=== PATIENT | male | born 1945 | race Caucasian/White ===

== ENCOUNTER → 2016-03-14 | Outpatient (CLI) | payer MEDICARE ==
[2016-03-14 13:52] LABS: Blood Urea Nitrogen 14 mg/dL (9-20); Non-African American GFR(MDRD) >60 (>60 ml/min/1.73 sqM)
--- NOTE | 2016-03-14 17:03 | CT ---
EXAMINATION TYPE: CT abdomen pelvis w con DATE OF EXAM: 03/14/2016 2:57 PM COMPARISON: NONE INDICATION: Epigastric abdominal pain DLP: 1534 mGycm, Automated exposure control for dose reduction was used. CONTRAST: 100 ml mL of Omnipaque 300. Study performed with Oral Contrast TECHNIQUE: Axial images were obtained from above the diaphragm to the pubic rami in the axial plane a t 5 mm thick sections. Reconstructed images are reviewed on the computer in the coronal plane. FINDINGS: Limited CT sections are obtained the lung bases. The lung bases are clear. Small hiatal hernia is e vident. CT ABDOMEN: Liver: Calcified granulomas in the superior right lobe liver. Spleen: Normal Pancreas: Normal Adrenal glands: The adrenal glands are normal. Gallbladder: Gallstones are present. Kidneys: No masses are evident. No hydronephrosis is present. No cysts are present. Delayed images were obtained through the kidneys, which remain unremarkable. Nonobstructing 0.5 cm left mid renal s tone is present. There is a 0.8 cm inferior pole left renal stone Aorta: Vascular calcification is within the aorta. Inferior vena cava: Normal. CT PELVIS: Loops of bowel within the abdomen and pelvis are normal. There are loops of bowel which are incom pletely distended or lack oral contrast limiting their evaluation. Appendix: Normal as visualized. Urinary bladder: Normal. Genitourinary structures: Prostate contains calcification. Prostate hypertrophy is present. Osseous structures: No suspicious lytic or sclerotic lesions. IMPRESSIONS: 1. Nonobstructing 0.5 cm mid left renal pelvis stone. Additional left renal stone is present at the inferior pole without obstruction. 2. Prostate hypertrophy with calcification. 3. Hiatal hernia
== END | disposition home or self-care (01) ==
LOC: RADCTMAIN 13:08
PROVIDERS: ATTEND Surgery
DX: N20.0 Calculus of kidney (principal); N40.1 Benign prostatic hyperplasia with lower urinary tract symptoms; K44.9 Diaphragmatic hernia without obstruction or gangrene
CPT/HCPCS: 82565; 84520; 74177; 36415; Q9967

== ENCOUNTER → 2016-03-22 | Outpatient (CLI) | payer MEDICARE ==
[2016-03-22 14:57] LABS: Blood Urea Nitrogen 16 mg/dL (9-20); Non-African American GFR(MDRD) >60 (>60 ml/min/1.73 sqM)
== END | disposition home or self-care (01) ==
LOC: LABWHC1 14:09
PROVIDERS: ATTEND Surgery
DX: R22.2 Localized swelling, mass and lump, trunk (principal)
CPT/HCPCS: 36415; 82565; 84520

== ENCOUNTER → 2016-03-23 | Outpatient (CLI) | payer MEDICARE ==
--- NOTE | 2016-03-23 09:57 | CT ---
EXAMINATION TYPE: CT chest w con DATE OF EXAM: 03/23/2016 7:55 AM COMPARISON: NONE no prior chest CT or x-rays at this location., CT abdomen pelvis 03/14/2016 reviewed. HISTORY: Pt here for Chest mass CT DLP: 372.7 mGycm, Automated exposure control for dose reduction was used. CONTRAST: Performed injected with 100 mL of Omnipaque 300. TECHNIQUE: Axial images were obtained at 5 mm thick sections. Reconstructed images are reviewed on [employer] computer in the coronal plane. FINDINGS: Portion of the thyroid visualized is normal. No suspicious lung nodules or focal infiltrates are present. No enlarged mediastinal or hilar adenopathy is evident. Couple of small lymph nodes are within the m ediastinum. The ascending aorta diameter at the level of the main pulmonary artery is 3.0 cm. The ma in pulmonary artery diameter at the bifurcation is 2.6 cm. There is thickening of the distal esophagus. This extends from level of the luh to the gastroesoph ageal junction. A portion of this may be hiatal hernia right esophageal thickening however should be considered which raises the possibility of neoplasm. This area is more extensive than what was in the edaqr-ew-bisp previously. Limited CT sections are obtained through the upper abdomen. Abdomen is essentially unremarkable. IMPRESSIONS: 1. A long segment of thickening of the distal esophagus. A portion of this may be hiatal hernia. Goldberg anahy, given the extent, esophageal neoplasm should be considered. Additional workup is recommended.
== END | disposition home or self-care (01) ==
LOC: RADCTMAIN 07:22
PROVIDERS: ATTEND Surgery
DX: K22.8 Other specified diseases of esophagus (principal)
CPT/HCPCS: 71260; Q9967

== ENCOUNTER → 2016-03-25 | Outpatient (CLI) | payer MEDICARE ==
--- NOTE | 2016-03-27 20:48 | PE ---
EXAMINATION TYPE: PET CT fusion skull to thigh DATE OF EXAM: 03/25/2016 1:01 PM CLINICAL HISTORY: 70-year-old male with stomach cancer, initial staging TECHNIQUE: Following the intravenous administration of 14.8 mCi of F-18 FDG, whole body images are performed from the skull base to the midthigh. Images are reviewed on the computer in the coronal, a xial, and sagittal planes. Reconstructed rotating images are created on independent workstation and reviewed on the computer. A localization and attenuation correction CT is performed in conjunction with the PET scan. Glucose level: 94 mg/dL COMPARISON: Correlation CT 03/23/2016 and 03/14/2016 FINDINGS: PET: There is borderline moderate FDG uptake at the right AC joint likely on the basis of underlying osteo arthrosis. Maximal SUV 3.1. There are mediastinal lymph nodes, largest in the left paraesophageal region measuring up to 2.0 cm s hort axis. These show suspicious hypermetabolism, maximal SUV 10.3. Smaller mediastinal lymph nodes such as in the left tracheobronchial angle measure up to 9 mm and als o show increased FDG uptake, maximal SUV 4.7. Beginning from the level of the mid thoracic esophagus extending down to the GE junction, there is mo derate to severe irregular circumferential esophageal wall thickening that shows intense hypermetabol ism, maximal SUV 14.1. A 3 mm pulmonary nodule in the right middle lobe, axial image 112 is too small for accurate PET les cterization. This can be reassessed at follow-up. A mildly enlarged 1.1 cm gastrohepatic ligament lymph node in the upper abdomen shows moderate increa sed FDG uptake, maximal SUV 4.2. Additional retroperitoneal lymphadenopathy is noted measuring up to 1.8 cm aortocaval, 1.1 cm left re trocrural, and 2.2 cm left para-aortic all of which shows suspicious increased hypermetabolism. Maxim al SUV 12.9. Otherwise, there is physiologic FDG uptake within the abdomen and pelvis. ATTENUATION CORRECTION CT: Polyp or mucosal retention cyst along the anterior floor of the left maxillary sinus. No cervical lym phadenopathy seen. Heart is normal size without pericardial effusion. Coronary vessel calcifications are present and are a marker for coronary artery disease. Some calcified mediastinal lymph nodes are nonenlarged and sug gest prior granulomatous disease. Mild dependent atelectasis posteriorly in the lower lungs. Calcifie d granuloma in the lingula and right middle lobe. No consolidation or pleural effusion. Mild to mode rate bilateral gynecomastia. Small layering calculi in the gallbladder without any abnormal gallbladder distention. 2 nonobstruct inez calculi within the left kidney, largest in the lower pole measuring 1 cm. Tiny fatty umbilical h ernia is noted. Normal appendix. Scattered left hemicolonic diverticulosis with moderate stool burde n and no pericolonic inflammatory change. Prostatomegaly of 4.9 cm with central prostatic calcifications. Bones: Mild degenerative changes of hips. A small sclerotic focus is redemonstrated in the proximal l eft femur, likely bone island. Degenerative bony ankylosis at the right SI joint and degenerative derrek nges in the mid to lower lumbar spine. No osseous destructive process. Degenerative changes at the ri ght AC joint. IMPRESSION: 1. Moderate to severe irregular wall thickening spanning from the mid thoracic esophagus down to the GE junction with corresponding suspicious hypermetabolism. 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 2. Nonenlarged and enlarged hypermetabolic mediastinal, left paraesophageal (2.0 cm), left retrocrura l, gastrohepatic ligament (1.1 cm), and retroperitoneal (2.2 cm) lymphadenopathy compatible with meta static disease. 3. A 3 mm right middle lobe pulmonary nodule is too small for adequate PET characterization and may r elate to prior granulomatous disease. This should be reassessed at follow-up. 4. Incidental findings in the abdomen as above including cholelithiasis, left hemicolonic diverticulo sis, left-sided nephrolithiasis, and prostatomegaly (4.9 cm wide). 5. Degenerative FDG uptake at the right AC joint.
== END ==
LOC: RADPETMAIN 10:30
PROVIDERS: ATTEND Surgery
DX: C16.9 Malignant neoplasm of stomach, unspecified (principal); R59.0 Localized enlarged lymph nodes; R91.1 Solitary pulmonary nodule; K80.20 Calculus of gallbladder without cholecystitis without obstruction; K57.30 Diverticulosis of large intestine without perforation or abscess without bleeding; N20.0 Calculus of kidney; N40.0 Benign prostatic hyperplasia without lower urinary tract symptoms
CPT/HCPCS: 78815; A9552

== ENCOUNTER → 2016-04-17 | Outpatient (CLI) | payer MEDICARE ==
--- NOTE | 2016-04-18 10:59 | ECHOF ---
Referral Reason:Esophageal Ca C15.15, Z01.818 pre Chemo MEASUREMENTS -------- HEIGHT: 180.3 cm WEIGHT: 88.5 kg BP: 123/60 RVIDd: 2.6 cm (< 3.3) IVSd: 1.0 cm (0.6 - 1.1) LVIDd: 3.3 cm (3.9 - 5.3) LVPWd: 1.0 cm (0.6 - 1.1) IVSs: 1.4 cm LVIDs: 2.3 cm LVPWs: 1.7 cm LA Diam: 3.1 cm (2.7 - 3.8) LAESV Index (A-L): 11.13 ml/m Ao Diam: 3.6 cm (2.0 - 3.7) AV Cusp: 2.4 cm (1.5 - 2.6) MV EXCURSION: 15.965 mm (> 18.000) MV EF SLOPE: 54 mm/s (70 - 150) EPSS: 1.0 cm MV E Maxwell: 0.70 m/s MV DecT: 249 ms MV A Maxwell: 0.60 m/s MV E/A Ratio: 1.17 RAP: 5.00 mmHg RVSP: 28.81 mmHg FINDINGS -------- Sinus rhythm. This was a technically good study. The left ventricular size is normal. Left ventricular wall thickness is normal. Overall left ventricular systolic function is normal with, an EF between 55 - 60 %. The right ventricle is normal in size. The left atrium is normal in size. Normal LA size by volume 22+/-6 ml/m2. The right atrium is normal in size. The aortic valve is trileaflet and appears structurally normal. Mild mitral annular calcification present. Mild tricuspid regurgitation present. Right ventricular systolic pressure is normal at < 35 mmHg. Pulmonic valve appears structurally normal. The aortic root size is normal. Normal inferior vena cava with normal inspiratory collapse consistent with estimated right atrial pressure of 5 mmHg. There is no pericardial effusion. CONCLUSIONS -------- 1. Sinus rhythm. 2. Mild mitral annular calcification present. 3. Mild tricuspid regurgitation present. 4. Right ventricular systolic pressure is normal at < 35 mmHg. 5. Pulmonic valve appears structurally normal. 6. The aortic root size is normal. 7. Normal inferior vena cava with normal inspiratory collapse consistent with estimated right atrial pressure of 5 mmHg. 8. There is no pericardial effusion. 9. This was a technically good study. 10. The left ventricular size is normal. 11. Left ventricular wall thickness is normal. 12. Overall left ventricular systolic function is normal with, an EF between 55 - 60 %. 13. The right ventricle is normal in size. 14. Normal LA size by volume 22+/-6 ml/m2. 15. The right atrium is normal in size. 16. The aortic valve is trileaflet and appears structurally normal. BALANCE WHEEL HAND FILER: Tequila Parra RDCS
== END | disposition home or self-care (01) ==
LOC: RADECHMAIN 13:57
PROVIDERS: ATTEND Internal Medicine Hematology & Oncology
DX: Z01.810 Encounter for preprocedural cardiovascular examination (principal); C15.9 Malignant neoplasm of esophagus, unspecified; I08.1 Rheumatic disorders of both mitral and tricuspid valves
CPT/HCPCS: 93306

== ENCOUNTER 2016-04-18 10:58 | Day surgery (SDC) | payer MEDICARE ==
[2016-04-11 14:07] VITALS: BMI 27.6
[~2016-04-18 10:58] MED LIST: DEXAMETHASONE SOD PHOSPHATE 10 MG/ML 1 ML VIAL IV ONE; HEPARIN SODIUM,PORCINE 5,000 UNIT/ML 1 ML VIAL SQ ONE; HYDROmorphone 1 MG/ML 1 ML SYRINGE IVP PRN; LACTATED RINGERS 1,000 ML IV SCH; MIDAZOLAM 2 MG/2 ML VIAL IV PRN; ONDANSETRON 4 MG/2 ML VIAL IVP ONE; SCOPOLAMINE 1.5MG/72HR PATCH TRANSDERM ONE; ceFAZolin 2 GM in SODIUM CHLORIDE 0.9% 100 ML IVPB ONE
[2016-04-18 11:28] VITALS: RESP 16; TEMP 97.9
[2016-04-18] MEDS ORDERED: LIDOCAINE 1% 20 ML VIAL (10MG/ML) FOR IV START INTRADERMA ONE (11:38)
[2016-04-18] MEDS ORDERED: PROPOFOL 10 MG/ML 20 ML VIAL IV ONE (12:08)
[2016-04-18] MEDS ORDERED: GLYCOPYRROLATE 0.2 MG/ML 2 ML VIAL ONE (12:08)
[2016-04-18] MEDS ORDERED: MIDAZOLAM 2 MG/2 ML VIAL ONE (12:08)
[2016-04-18] MEDS ORDERED: fentaNYL (PF) 50 MCG/ML 2 ML AMP ONE (12:08)
[2016-04-18] MEDS ORDERED: LIDOCAINE 1% INJ 10MG/ML (20 ML MDV) ONE (12:08)
[2016-04-18] MEDS ORDERED: KETAMINE 10 MG/ML 20 ML VIAL ONE (12:08)
[2016-04-18] MEDS ORDERED: HEPARIN SODIUM,PORCINE 100 UNIT/ML 5 ML VIAL IV ONE (12:26)
[2016-04-18] MEDS ORDERED: IOHEXOL 350 MG/ML 50ML BOTTLE MISCELLANE ONE ×2 (12:27)
[2016-04-18] MEDS ORDERED: LIDOCAINE 1% (PF) 10MG/ML VIAL SQ ONE ×2 (12:28)
--- NOTE | 2016-04-18 13:13 | P.OP ---
Date of Procedure: 04/18/16 Preoperative Diagnosis: Esophageal cancer with a planned chemotherapy Postoperative Diagnosis: Esophageal cancer with planned chemotherapy Procedure(s) Performed: The patient was brought to the operating room and placed in supine position with both arms tucked. A footboard was placed. Chlorhexidine was used to prep the neck followed by application of sterile drapes and an Ioban dressing . A timeout was performed to verify correct patient and correct procedure. Patient was confirmed to receive perioperative IV antibiotics and VTE prophylaxis. An ultrasound was performed of the right neck to identify the carotid artery and internal jugular vein. The internal jugular vein was compressible and patent . Photodocumentation was made. Local anesthetic was infiltrated to create a field block. Seldinger technique was used and the internal jugular vein was accessed under direct ultrasound guidance. There was good backflow of dark venous blood. The guidewire was inserted and fluoroscopic images obtained to confirm the tip in SVC. The needle was removed followed by insertion of a dilator peel-away sheath. Local anesthetic was infiltrated along the inferior aspect of the right clavicle. A 2.5 cm skin incision was made and dissection was carried up to the pectoralis major muscle. A pocket was created for the port. The peel-away was cracked and removed with the port in appropriate position as confirmed by fluoroscopy and dye. A Bob was used to tunnel from the expected port site all the way up to the small incision in the neck and the catheter was pulled down into the cavity and then, once cut to size and attached to the port. The connector was clipped shut into position after which fluoroscopy was done positioning. We did use radiopaque dye for this roughly 20 mL. Once that was done subcutaneous tissue in the right pocket area was closed with 2-0 Vicryl. Skin was closed with 4-0 Monocryl for the port site as well as the initial access site. Dermabond was applied slight pressure dressing in the neck as well as Telfa with Tegaderm for the right pectoral region. Total fluoroscopic time was 2 minutes and 41 seconds. Prior to leaving the operating room fluoroscopy showed the catheter tip in the appropriate site patient will get a chest x-ray in recovery. Anesthesia: GETA, regional Surgeon: Familia Jones Estimated Blood Loss (ml): 10 Pathology: none sent Condition: stable Disposition: PACU Indications for Procedure: Biopsy proven esophageal cancer Operative Findings: Patent right IJ Good blood flow on accessing the port Heplocked at the end Description of Procedure: The patient was brought to the operating room and placed in supine position with both arms tucked. A footboard was placed. Chlorhexidine was used to prep the neck followed by application of sterile drapes and an Ioban dressing . A timeout was performed to verify correct patient and correct procedure. Patient was confirmed to receive perioperative IV antibiotics and VTE prophylaxis. An ultrasound was performed of the right neck to identify the carotid artery and internal jugular vein. The internal jugular vein was compressible and patent . Photodocumentation was made. Local anesthetic was infiltrated to create a field block. Seldinger technique was used and the internal jugular vein was accessed under direct ultrasound guidance. There was good backflow of dark venous blood. The guidewire was inserted and fluoroscopic images obtained to confirm the tip in SVC. The needle was removed followed by insertion of a dilator peel-away sheath. Local anesthetic was infiltrated along the inferior aspect of the right clavicle. A 2.5 cm skin incision was made and dissection was carried up to the pectoralis major muscle. A pocket was created for the port. The peel-away was cracked and removed with the port in appropriate position as confirmed by fluoroscopy and dye. A Bob was used to tunnel from the expected port site all the way up to the small incision in the neck and the catheter was pulled down into the cavity and then, once cut to size and attached to the port. The connector was clipped shut into position after which fluoroscopy was done positioning. We did use radiopaque dye for this roughly 20 mL. Once that was done subcutaneous tissue in the right pocket area was closed with 2-0 Vicryl. Skin was closed with 4-0 Monocryl for the port site as well as the initial access site. Dermabond was applied slight pressure dressing in the neck as well as Telfa with Tegaderm for the right pectoral region. Total fluoroscopic time was 2 minutes and 41 seconds. Prior to leaving the operating room fluoroscopy showed the catheter tip in the appropriate site patient will get a chest x-ray in recovery.
--- NOTE | 2016-04-18 13:26 | FL ---
Fluoroscopy History: PORT A CATH INSERTION 2 MIN 41 SEC FL, 1 FILM SCANNED
--- NOTE | 2016-04-18 13:55 | XR ---
EXAMINATION TYPE: XR chest 1V confirm line [facility] DATE OF EXAM: 04/18/2016 1:50 PM HISTORY: Shortness of breath. COMPARISON: None. TECHNIQUE: Single view of the chest is submitted. FINDINGS: Mediport catheter with its tip overlying the SVC. No evidence for pneumothorax. Strandy basilar densi ties may reflect atelectasis. Cardiomediastinal silhouette is unremarkable. IMPRESSION: 1. Line placed as noted without pneumothorax.
[2016-04-18 14:21] VITALS: BP 102/67; PULSE 65
== END 2016-04-18 14:27 | disposition home or self-care (01) ==
LOC: OR 10:58
PROVIDERS: ATTEND Surgery
DX: C15.9 Malignant neoplasm of esophagus, unspecified (principal); I10 Essential (primary) hypertension; E78.00 Pure hypercholesterolemia, unspecified; E78.5 Hyperlipidemia, unspecified; K21.9 Gastro-esophageal reflux disease without esophagitis; E55.9 Vitamin D deficiency, unspecified; Z79.82 Long term (current) use of aspirin; Z79.899 Other long term (current) drug therapy; Z87.891 Personal history of nicotine dependence
CPT/HCPCS: 77001; 36561; C1788; J2250; J1644 ×2; J1100; J0690; J2405; J2001 ×2; J3010; J2704; Q9967; 99152; 99153

== ENCOUNTER → 2016-07-10 | Outpatient (CLI) | payer MEDICARE ==
--- NOTE | 2016-07-11 09:24 | ECHOF ---
Referral Reason:C15.5 [facility] Z01.818 [place] MEASUREMENTS -------- HEIGHT: 179.1 cm WEIGHT: 90.7 kg BP: 123/57 RVIDd: 2.6 cm (< 3.3) IVSd: 1.2 cm (0.6 - 1.1) LVIDd: 4.3 cm (3.9 - 5.3) LVPWd: 1.3 cm (0.6 - 1.1) IVSs: 1.6 cm LVIDs: 3.1 cm LVPWs: 1.5 cm LA Diam: 3.2 cm (2.7 - 3.8) LAESV Index (A-L): 27.16 ml/m Ao Diam: 3.5 cm (2.0 - 3.7) AV Cusp: 1.8 cm (1.5 - 2.6) MV EXCURSION: 15.271 mm (> 18.000) MV EF SLOPE: 67 mm/s (70 - 150) EPSS: 1.3 cm MV E Maxwell: 0.83 m/s MV DecT: 210 ms MV A Maxwell: 0.66 m/s MV E/A Ratio: 1.27 RAP: 5.00 mmHg RVSP: 21.00 mmHg FINDINGS -------- Sinus rhythm. This was a technically adequate study. The left ventricular size is normal. There is mild concentric left ventricular hypertrophy. Overall left ventricular systolic function is low-normal with, an EF between 50 - 55 %. The right ventricle is normal in size. Normal LA size by volume 22+/-6 ml/m2. The right atrium is normal in size. Aortic valve is trileaflet and is mildly thickened. The mitral valve leaflets are mildly thickened. Mild mitral annular calcification present. There is trace mitral regurgitation. Trace tricuspid regurgitation present. Right ventricular systolic pressure is normal at < 35 mmHg. The pulmonic valve is normal. IVC Not well visulized. The pericardium is normal. CONCLUSIONS -------- 1. Sinus rhythm. 2. The mitral valve leaflets are mildly thickened. 3. Mild mitral annular calcification present. 4. There is trace mitral regurgitation. 5. Trace tricuspid regurgitation present. 6. Right ventricular systolic pressure is normal at < 35 mmHg. 7. The pulmonic valve is normal. 8. IVC Not well visulized. 9. The pericardium is normal. 10. This was a technically adequate study. 11. The left ventricular size is normal. 12. There is mild concentric left ventricular hypertrophy. 13. Overall left ventricular systolic function is low-normal with, an EF between 50 - 55 %. 14. The right ventricle is normal in size. 15. Normal LA size by volume 22+/-6 ml/m2. 16. The right atrium is normal in size. 17. Aortic valve is trileaflet and is mildly thickened. SCHOOL COOK: Kishan Ureña RDCS
== END | disposition home or self-care (01) ==
LOC: RADECHMAIN 13:12
PROVIDERS: ATTEND Internal Medicine Hematology & Oncology
DX: Z01.818 Encounter for other preprocedural examination (principal); I08.1 Rheumatic disorders of both mitral and tricuspid valves; C15.9 Malignant neoplasm of esophagus, unspecified
CPT/HCPCS: 93306

== ENCOUNTER → 2016-07-15 | Outpatient (CLI) | payer MEDICARE ==
--- NOTE | 2016-07-17 17:59 | PE ---
EXAMINATION TYPE: PET CT fusion skull to thigh DATE OF EXAM: 07/15/2016 2:50 PM CLINICAL HISTORY: 70-year-old male initial staging esophageal cancer. Last chemotherapy on 07/04/2016. TECHNIQUE: Following the intravenous administration of 14.6 mCi of F-18 FDG, whole body images are performed from the skull base to the midthigh. Images are reviewed on the computer in the coronal, a xial, and sagittal planes. Reconstructed rotating images are created on independent workstation and reviewed on the computer. A localization and attenuation correction CT is performed in conjunction with the PET scan. Glucose level: 89 mg/dL CTDI- 5.01 mGy DLP- 505.16 mGy/cm COMPARISON: 03/25/2016 FINDINGS: PET: Physiologic FDG uptake within the neck. A tiny 3 mm pulmonary nodule within the right middle lobe, axial image 107, is unchanged and too smal l for adequate PET characterization. A tiny granuloma is suspected. Interval treatment response with residual mild circumferential thickening of the distal half of the e sophagus, significantly improved from prior. There has been complete metabolic response in this area area, maximal SUV previously, 14.1. 2 left paraesophageal lymph nodes remain. These measure 1.4 cm versus 1.6 cm, previously, and 1.3 cm versus 2.0 cm, previously. One of these shows residual borderline intense hypermetabolism, maximal ISAAC V 5.8 versus 10.3, previously. There is trace FDG uptake at both fredo which appears to correspond to calcified lymph nodes, likely i nflammatory uptake from prior granulomatous disease. Previously seen hypermetabolic gastrohepatic ligament, retrocrural, and retroperitoneal lymph nodes h ave resolved in the interval. Mildly enlarged 9 mm left paraaortic lymph node also decreased in size and now ametabolic. Variable right hemicolonic and sigmoid colon uptake is likely physiologic. There is focal increased uptake at the left greater trochanter suggesting gluteal insertional tendino belén. Additional degenerative uptake at the right AC joint redemonstrated. ATTENUATION CORRECTION CT: Right anterior chest wall injection port with catheter tip at the lower SVC. Stable polyp or mucosal retention cyst within the left maxillary sinus. Mastoid air cells well pneuma tized. No cervical lymphadenopathy seen. The heart is upper limits of normal in size without pericardial effusion. Coronary vessel calcificati ons are present and unremarkable for coronary artery disease. Aorta is normal caliber with convention al arch vessel branching anatomy. Redemonstrated calcified mediastinal and hilar lymph nodes suggest ing prior granulomatous disease. Calcified granuloma within the lingula. Band of atelectasis/scar at the left base and new atelectasis at the inferior lingula. Mild to moderate bilateral gynecomastia. A calcified pulmonary granulomas. Layering calculi in the gallbladder. Previously demonstrated 1.1 cm nonobstructive calculus lower sebastián e left kidney. No dilated small bowel, free fluid, or free air. Prominent fluid within mid and lower small bowel loops and liquid stool within the right hemicolon. Bladder is urine distended. Prostate gland is enlarged measuring 5.3 cm wide. No abnormal fluid colle ction in the pelvis or pelvic lymphadenopathy seen. Bones: Degenerative changes at the right SI joint, lower lumbar spine, and right AC joint. IMPRESSION: 1. Interval treatment response. There has been significant improvement in the previous abnormal thick ening of the lower esophagus with complete metabolic response at the esophageal neoplasm. 2. One of the left paraesophageal lymph nodes, while decreased in size, still remains enlarged (1.4 c m) and shows residual borderline intense FDG uptake (Max SUV 5.8 versus 14.1, previously). Residual d isease here is not excluded at this time. 3. Other mediastinal, paraesophageal, retrocrural, upper abdominal, and retroperitoneal lymph nodes s how complete metabolic response. 4. The 3 mm right middle lobe pulmonary nodule is unchanged and presumed to relate to granulomatous d isease. 5. Incidental findings (cholelithiasis, left-sided nephrolithiasis, and prostatomegaly).
== END | disposition home or self-care (01) ==
LOC: RADPETMAIN 08:15
PROVIDERS: ATTEND Internal Medicine Hematology & Oncology
DX: C15.9 Malignant neoplasm of esophagus, unspecified (principal); R91.1 Solitary pulmonary nodule; R59.0 Localized enlarged lymph nodes
CPT/HCPCS: 78815; A9552

== ENCOUNTER → 2016-10-23 | Outpatient (CLI) | payer MEDICARE ==
--- NOTE | 2016-10-24 11:57 | ECHOF ---
Referral Reason:C15.5 esophageal cancer Z01.818 pre chemo MEASUREMENTS -------- HEIGHT: 177.8 cm WEIGHT: 82.6 kg BP: 119/55 RVIDd: 2.8 cm (< 3.3) IVSd: 1.2 cm (0.6 - 1.1) LVIDd: 4.6 cm (3.9 - 5.3) LVPWd: 1.1 cm (0.6 - 1.1) EDV(Teich): 97 ml IVSs: 1.5 cm LVIDs: 3.4 cm LVPWs: 1.7 cm %IVS Thck: 34 % ESV(Teich): 48 ml EF(Teich): 51 % %FS: 26 % SV(Teich): 50 ml LA Diam: 3.1 cm (2.7 - 3.8) IVC: 2.1 cm LALs A4C: 6.0 cm LAAs A4C: 21.0 cm LAESV A-L A4C: 62 ml LAESV MOD A4C: 61 ml LALs A2C: 5.6 cm LAAs A2C: 16.7 cm LAESV A-L A2C: 42 ml LAESV MOD A2C: 40 ml LAESV(A-L): 53 ml LAESV Index (A-L): 26.60 ml/m Ao Diam: 3.4 cm (2.0 - 3.7) AV Cusp: 2.3 cm (1.5 - 2.6) MV EXCURSION: 15.184 mm (> 18.000) MV EF SLOPE: 163 mm/s (70 - 150) EPSS: 1.1 cm MV E Maxwell: 0.79 m/s MV DecT: 210 ms MV Dec [place]: 3.7 m/s MV A Maxwell: 0.63 m/s MV E/A Ratio: 1.25 MV PHT: 61 ms E/E': 7.40 E': 0.11 m/s AV Vmax: 1.40 m/s AV maxP.89 mmHg TR Vmax: 2.40 m/s TR maxP.98 mmHg RAP: 5.00 mmHg RVSP: 27.98 mmHg FINDINGS -------- Sinus rhythm. This was a technically good study. The left ventricular size is normal. There is borderline concentric left ventricular hypertrophy. Overall left ventricular systolic function is normal with, an EF between 55 - 60 %. The right ventricle is normal in size. Normal LA size by volume 22+/-6 ml/m2. The right atrium is normal in size. The aortic valve is trileaflet, and appears structurally normal. No aortic stenosis or regurgitation. Mild mitral annular calcification present. Mild tricuspid regurgitation present. Right ventricular systolic pressure is normal at < 35 mmHg. The pulmonic valve is normal. The aortic root size is normal. The inferior vena cava is mildly dilated. The pericardium is normal. CONCLUSIONS -------- 1. Sinus rhythm. 2. Mild mitral annular calcification present. 3. Mild tricuspid regurgitation present. 4. Right ventricular systolic pressure is normal at < 35 mmHg. 5. The pulmonic valve is normal. 6. The aortic root size is normal. 7. The inferior vena cava is mildly dilated. 8. The pericardium is normal. 9. This was a technically good study. 10. The left ventricular size is normal. 11. There is borderline concentric left ventricular hypertrophy. 12. Overall left ventricular systolic function is normal with, an EF between 55 - 60 %. 13. The right ventricle is normal in size. 14. Normal LA size by volume 22+/-6 ml/m2. 15. The right atrium is normal in size. 16. The aortic valve is trileaflet, and appears structurally normal. No aortic stenosis or regurgitation. DUST MIXER: Tequila Parra RDCS
== END | disposition home or self-care (01) ==
LOC: RADECHMAIN 13:16
PROVIDERS: ATTEND Internal Medicine Hematology & Oncology
DX: Z01.818 Encounter for other preprocedural examination (principal); C15.5 Malignant neoplasm of lower third of esophagus; I07.1 Rheumatic tricuspid insufficiency
CPT/HCPCS: 93306

== ENCOUNTER → 2016-10-28 | Outpatient (CLI) | payer MEDICARE ==
--- NOTE | 2016-10-28 10:32 | PE ---
EXAMINATION TYPE: PET CT fusion skull to thigh DATE OF EXAM: 10/28/2016 COMPARISON: Prior PET/CT July 15, 2016. HISTORY: Esophageal cancer diagnosed March 2016 progress study . Patient completed chemotherapy [place] 14. TECHNIQUE: Following the intravenous administration of 13.7 mCi of F-18 FDG, whole body images are p erformed from the skull base to the midthigh. Images are reviewed on the computer in the coronal, ax ial, and sagittal planes. Reconstructed rotating images are created on independent workstation and r eviewed on the computer. A localization and attenuation correction CT is performed in conjunction w ith the PET scan. SCAN: Subsequent Scan FINDINGS: SKULL BASE AND NECK: No suspicious new hypermetabolic uptake is identified in the neck on current st udy. CHEST, MEDIASTINUM, AND HILAR REGION: There is persistent moderate to severe wall thickening of the m id to distal esophagus from subcarinal level extending to just above diaphragmatic hiatus. On current exam there is new hypermetabolic uptake over roughly 5 cm segment posterior to left atrium with max SUV of 4.34 on current study. In addition there is new abnormal right paraesophageal adenopathy at th e subcarinal level on axial image 88, lymph node on the right measures 1.9 x 1.3 cm with max SUV of 8.16. There is 1 cm left paraesophageal lymph node with max SUV of 4.11 on axial image 87 noted. Stab le node on the left measures 1.6 x 1.1 cm on axial image 96 with hypermetabolic uptake, max SUV is 4. 34 slightly diminished from prior study. ABDOMEN AND PELVIS: Upper abdomen shows recurrent adenopathy, gastrohepatic lymph node measures 1.7 x 1.7 cm on axial image 132 with max SUV of 3.16. There is recurrent retroperitoneal adenopathy with l eft periaortic lymph node on axial image 146 having max SUV of 7.83 measuring 1.1 x 1.1 cm. There is additional new aortocaval lymph node on axial image 153 measuring 1.9 x 1.4 cm with max SUV of 11.38. Additional new enlarged hypermetabolic left periaortic lymph node measures 1.8 x 1.8 cm on axial lloyd ge 156 with max SUV of 8.01. OSSEOUS STRUCTURES: No suspicious new hypermetabolic uptake is seen in the osseous structures. Increa sed uptake at level of right acromioclavicular joint is redemonstrated favor postinflammatory. OTHER CT: There is stable 1.4 cm mucous retention cyst or polyp in the anterior inferior left maxilla ry sinus. There is stable right internal jugular Mediport catheter. Heart size is stable and upper limits of normal. There is redemonstration of coronary artery calcific ation in the LAD on axial image 88. There is redemonstration of calcified bilateral hilar or mediastinal lymph nodes on axial image 78, l ikely product of old granulomatous disease. Some tiny calcified parenchymal nodules bilaterally are r edemonstrated, for reference 3 mm lingular nodule on axial image 88 is noted. Elevated left hemidiaphragm is redemonstrated. Bilateral gynecomastia is again seen. Dependent density or small stones in gallbladder is redemonstrated on axial image 138. Small calcific ation posterior in right hepatic dome is redemonstrated. There is stable 1.1 cm calculus lower pole l evel left kidney. Central zone calcifications and mildly enlarged prostate gland is redemonstrated. Facet arthropathy in the lower lumbar spine. There is multilevel spurring in the thoracolumbar spine. IMPRESSION: Findings consistent with neoplastic progression with recurrent hypermetabolic uptake in t he esophagus and new or recurrent paraesophageal and abdominal adenopathy noted as detailed above.
== END ==
LOC: RADPETMAIN 08:01
PROVIDERS: ATTEND Internal Medicine Hematology & Oncology
DX: C15.5 Malignant neoplasm of lower third of esophagus (principal)
CPT/HCPCS: 78815; A9552

== ENCOUNTER 2017-01-06 18:35 | Emergency (ER) | payer MEDICARE ==
[2017-01-06 18:41] VITALS: BP 122/55; RESP 18
[2017-01-06] MEDS ORDERED: SODIUM CHLORIDE 0.9% 1,000 ML IV STA (18:51)
[2017-01-06] MEDS ORDERED: ACETAMINOPHEN TAB 500 MG TAB PO STA (18:51)
[2017-01-06] MEDS ORDERED: SODIUM CHLORIDE 0.9% 500 ML IV STA (18:51)
[2017-01-06] MEDS ORDERED: IBUPROFEN 600 MG TAB PO STA (18:51)
--- NOTE | 2017-01-06 18:55 | ED ---
General Adult HPI - General Chief complaint: Fever Stated complaint: Fever, Ca patient Time Seen by Provider: 01/06/17 18:46 Source: patient, RN notes reviewed, old records reviewed Mode of arrival: ambulatory Limitations: no limitations - History of Present Illness Initial comments: Is a 71-year-old male to the ER for evaluation today. This patient's presenting evaluation of fever. Patient does have history of esophageal cancer. Patient has not had any lab tests since he started chemotherapy. Patient unsure of what white blood cell count or other cell lines have been. Patient does see Dr. Gurrola and follows with oncology. He did call her office until told to come to emergency room evaluation of his fever tonight. Patient denies any significant complaints no runny nose no sore throat no rashes no difficulty with urination, no nausea or vomiting. No abdominal pain no shortness of breath or cough. - Related Data Home Medications Medication Instructions Recorded Confirmed Aspirin 81 mg PO DAILY 03/19/14 01/06/17 Atenolol [Tenormin] 50 mg PO DAILY 03/19/14 01/06/17 Multivitamin [Men's Multi-Vitamin] 1 tab PO DAILY 03/19/14 01/06/17 Simvastatin [Zocor] 40 mg PO HS 03/19/14 01/06/17 Cholecalciferol [Vitamin D3] 5,000 unit PO DAILY 04/11/16 01/06/17 Docusate [Colace] 200 mg PO HS 01/06/17 01/06/17 Gabapentin [Neurontin] 300 mg PO TID 01/06/17 01/06/17 Vitamin B Complex 1 cap PO DAILY 01/06/17 01/06/17 Allergies Allergy/AdvReac Type Severity Reaction Status Date / Time No Known Allergies Allergy Verified 01/06/17 18:53 Review of Systems ROS Statement: Those systems with pertinent positive or pertinent negative responses have been documented in the HPI. ROS Other: All systems not noted in ROS Statement are negative. Past Medical History Past Medical History: Cancer, Hyperlipidemia, Hypertension Additional Past Medical History / Comment(s): esophageal cancer, hx kidney stones History of Any Multi-Drug Resistant Organisms: None Reported Past Surgical History: Tonsillectomy Additional Past Surgical History / Comment(s): COLONOSCOPY, lithotripsy, Past Anesthesia/Blood Transfusion Reactions: No Reported Reaction Past Psychological History: No Psychological Hx Reported Smoking Status: Never smoker Past Alcohol Use History: None Reported Past Drug Use History: None Reported - Past Family History Mother Family Medical History: Cancer Additional Family Medical History / Comment(s): breast General Exam Limitations: no limitations General appearance: alert, in no apparent distress Head exam: Present: atraumatic, normocephalic, normal inspection Eye exam: Present: normal appearance, PERRL, EOMI. Absent: scleral icterus, conjunctival injection, periorbital swelling ENT exam: Present: normal exam, mucous membranes moist Neck exam: Present: normal inspection. Absent: tenderness, meningismus, lymphadenopathy Respiratory exam: Present: normal lung sounds bilaterally. Absent: respiratory distress, wheezes, rales, rhonchi, stridor Cardiovascular Exam: Present: regular rate, normal rhythm, normal heart sounds. Absent: systolic murmur, diastolic murmur, rubs, gallop, clicks GI/Abdominal exam: Present: soft, normal bowel sounds. Absent: distended, tenderness, guarding, rebound, rigid Extremities exam: Present: normal inspection, full ROM, normal capillary refill. Absent: tenderness, pedal edema, joint swelling, calf tenderness Back exam: Present: normal inspection Neurological exam: Present: alert, oriented X3, CN II-XII intact Psychiatric exam: Present: normal affect, normal mood Skin exam: Present: warm, dry, intact, normal color. Absent: rash Course Vital Signs 01/06/17 01/06/17 01/06/17 18:39 18:58 20:29 Temperature 101 F H 98.4 F Pulse Rate 85 78 Respiratory 18 18 18 Rate Blood Pressure 122/55 122/55 O2 Sat by Pulse 97 95 Oximetry - Reevaluation(s) Reevaluation #1: 01/06/17 20:51 The patient is in no acute distress, feeling better with IV hydration and fever control EKG Findings - EKG Comments: EKG Findings:: EKG shows normal sinus rhythm rate of 89, MI 164, QRS 98, QTc 413 Medical Decision Making - Medical Decision Making 71 male with fever of unknown origin. Patient's white count is within normal limits, no source of fever found here in the ER, patient at this point feels better patient will be discharged home - Lab Data Result diagrams: 01/06/17 18:50 01/06/17 18:50 Lab Results 1101/06/17 01/06/17 Range/Units 18:50 18:50 18:50 WBC 8.6 (3.8-10.6) k/uL RBC 3.75 L (4.30-5.90) m/uL Hgb 12.2 L (13.0-17.5) gm/dL Hct 37.1 L (39.0-53.0) % MCV 98.9 (80.0-100.0) fL MCH 32.4 (25.0-35.0) pg MCHC 32.8 (31.0-37.0) g/dL RDW 14.1 (11.5-15.5) % Plt Count 305 (150-450) k/uL Neutrophils % 71 % Lymphocytes % 18 % Monocytes % 8 % Eosinophils % 1 % Basophils % 1 % Neutrophils # 6.0 (1.3-7.7) k/uL Lymphocytes # 1.6 (1.0-4.8) k/uL Monocytes # 0.7 (0-1.0) k/uL Eosinophils # 0.1 (0-0.7) k/uL Basophils # 0.0 (0-0.2) k/uL PT (9.0-12.0) sec INR (<1.2) APTT (22.0-30.0) sec Sodium 131 L (137-145) mmol/L Potassium 4.5 (3.5-5.1) mmol/L Chloride 99 (98-107) mmol/L Carbon Dioxide 23 (22-30) mmol/L Anion Gap 9 mmol/L BUN 14 (9-20) mg/dL Creatinine 0.90 (0.66-1.25) mg/dL Est GFR (MDRD) Af Amer >60 (>60 ml/min/1.73 sqM) Est GFR (MDRD) Non-Af >60 (>60 ml/min/1.73 sqM) Glucose 203 H (74-99) mg/dL Plasma Lactic Acid Malachi (0.7-2.0) mmol/L Calcium 9.0 (8.4-10.2) mg/dL Phosphorus 3.7 (2.5-4.5) mg/dL Magnesium 1.8 (1.6-2.3) mg/dL Total Bilirubin 1.2 (0.2-1.3) mg/dL AST 38 (17-59) U/L ALT 47 (21-72) U/L Alkaline Phosphatase 75 (38-126) U/L Total Creatine Kinase 49 L (55-170) U/L CK-MB (CK-2) 0.4 (0.0-2.4) ng/mL CK-MB (CK-2) Rel Index 0.8 Troponin I <0.012 (0.000-0.034) ng/mL Total Protein 7.6 (6.3-8.2) g/dL Albumin 3.7 (3.5-5.0) g/dL Influenza Type A RNA (Not Detectd) Influenza Type B (PCR) (Not Detectd) 01/06/17 01/06/17 01/06/17 Range/Units 18:50 18:50 18:55 WBC (3.8-10.6) k/uL RBC (4.30-5.90) m/uL Hgb (13.0-17.5) gm/dL Hct (39.0-53.0) % MCV (80.0-100.0) fL MCH (25.0-35.0) pg MCHC (31.0-37.0) g/dL RDW (11.5-15.5) % Plt Count (150-450) k/uL Neutrophils % % Lymphocytes % % Monocytes % % Eosinophils % % Basophils % % Neutrophils # (1.3-7.7) k/uL Lymphocytes # (1.0-4.8) k/uL Monocytes # (0-1.0) k/uL Eosinophils # (0-0.7) k/uL Basophils # (0-0.2) k/uL PT 11.4 (9.0-12.0) sec INR 1.1 (<1.2) APTT 24.8 (22.0-30.0) sec Sodium (137-145) mmol/L Potassium (3.5-5.1) mmol/L Chloride (98-107) mmol/L Carbon Dioxide (22-30) mmol/L Anion Gap mmol/L BUN (9-20) mg/dL Creatinine (0.66-1.25) mg/dL Est GFR (MDRD) Af Amer (>60 ml/min/1.73 sqM) Est GFR (MDRD) Non-Af (>60 ml/min/1.73 sqM) Glucose (74-99) mg/dL Plasma Lactic Acid Malachi 1.1 (0.7-2.0) mmol/L Calcium (8.4-10.2) mg/dL Phosphorus (2.5-4.5) mg/dL Magnesium (1.6-2.3) mg/dL Total Bilirubin (0.2-1.3) mg/dL AST (17-59) U/L ALT (21-72) U/L Alkaline Phosphatase (38-126) U/L Total Creatine Kinase (55-170) U/L CK-MB (CK-2) (0.0-2.4) ng/mL CK-MB (CK-2) Rel Index Troponin I (0.000-0.034) ng/mL Total Protein (6.3-8.2) g/dL Albumin (3.5-5.0) g/dL Influenza Type A RNA Not Detected (Not Detectd) Influenza Type B (PCR) Not Detected (Not Detectd) - Radiology Data Radiology results: report reviewed (Chest x-rays negative for acute disease), image reviewed Disposition Clinical Impression: Fever Disposition: HOME SELF-CARE Condition: Good Instructions: Fever in Adults (ED) Referrals: Torsten Nuñez MD [Primary Care Provider] - 1-2 days
[2017-01-06 19:10] LABS: Basophils % (A) 1 %; CH 33.1; CHCM 33.6; Eosinophils # (A) 0.1 k/uL (0-0.7); Eosinophils % (A) 1 %; HCT 37.1 % (39.0-53.0); HDW 2.77; HGB 12.2 gm/dL (13.0-17.5); Luc # (Auto) 0.14; Luc % (Auto) 2; Lymphocytes # (A) 1.6 k/uL (1.0-4.8); Lymphocytes % (A) 18 %; MCH 32.4 pg (25.0-35.0); MCHC 32.8 g/dL (31.0-37.0); MCV 98.9 fL (80.0-100.0); Mean Platelet Volume 6.5; Monocytes # (A) 0.7 k/uL (0-1.0); Monocytes % (A) 8 %; Neutrophils % (A) 71 %; RBC 3.75 m/uL (4.30-5.90); RDW 14.1 % (11.5-15.5); WBC 8.6 k/uL (3.8-10.6); WBC (Perox) 8.79
[2017-01-06 19:18] LABS: ALT 47 U/L (21-72); AST 38 U/L (17-59); Alkaline Phosphatase 75 U/L (38-126); Anion Gap 9 mmol/L; Blood Urea Nitrogen 14 mg/dL (9-20); Carbon Dioxide 23 mmol/L (22-30); Chloride 99 mmol/L (98-107); Glucose 203 mg/dL (74-99); Magnesium 1.8 mg/dL (1.6-2.3); Non-African American GFR(MDRD) >60 (>60 ml/min/1.73 sqM); Phosphorus 3.7 mg/dL (2.5-4.5); Potassium 4.5 mmol/L (3.5-5.1); Sodium 131 mmol/L (137-145); Total Bilirubin 1.2 mg/dL (0.2-1.3); Total Protein 7.6 g/dL (6.3-8.2)
[2017-01-06 19:19] LABS: INR 1.1 (<1.2); Partial Thromboplastin Time 24.8 sec (22.0-30.0); Prothrombin Time 11.4 sec (9.0-12.0)
[2017-01-06 19:29] LABS: Creatine Kinase 49 U/L (55-170)
[2017-01-06 19:42] LABS: Creatine Kinase MB 0.4 ng/mL (0.0-2.4); Troponin I <0.012 ng/mL (0.000-0.034)
[2017-01-06 20:33] VITALS: PULSE 78; TEMP 98.4
--- NOTE | 2017-01-06 20:46 | XR ---
EXAMINATION TYPE: XR chest 2V DATE OF EXAM: 01/06/2017 COMPARISON: 04/18/2016 HISTORY: Fever TECHNIQUE: Frontal and lateral views of the chest are obtained. FINDINGS: There is no heart failure nor confluent pneumonic infiltrate. There is mild linear density at the right lung base. Right central venous catheter has tip in the superior vena cava. There are c hest leads. There is some linear density in the left lower lobe. IMPRESSION: Bilateral lower lobe patchy atelectasis that is similar to old exam. No heart failure.
== END 2017-01-06 20:59 | disposition home or self-care (01) ==
LOC: EC 18:35
DX: R50.9 Fever, unspecified (principal); E78.5 Hyperlipidemia, unspecified; I10 Essential (primary) hypertension; Z79.82 Long term (current) use of aspirin; Z79.899 Other long term (current) drug therapy; Z85.01 Personal history of malignant neoplasm of esophagus; Z92.21 Personal history of antineoplastic chemotherapy
CPT/HCPCS: 36415; 71020; 80053; 82550; 82553; 83605; 83735; 84100; 84484; 85025; 85610; 85730; 87040; 87502; 93005; 96360; 96361; 99284

== ENCOUNTER → 2017-01-06 | Outpatient (CLI) | payer MEDICARE | END | disposition home or self-care (01) | LOC: RADPETMAIN 11:47 | PROVIDERS: ATTEND Internal Medicine Hematology & Oncology | DX: Z53.9 Procedure and treatment not carried out, unspecified reason (principal) ==

== ENCOUNTER → 2017-01-13 | Outpatient (CLI) | payer MEDICARE ==
--- NOTE | 2017-01-15 07:58 | PE ---
EXAMINATION TYPE: PET CT fusion skull to thigh DATE OF EXAM: 01/13/2017 COMPARISON: PET/CT dated 10/28/2016, 07/15/2016, and 03/25/2016. CT abdomen pelvis dated 03/14/2016. HISTORY: Esophageal carcinoma diagnosed every 2016. Last chemotherapy treatment on 01/08/2017. No his tory of radiation. TECHNIQUE: Following the intravenous administration of 12.6 mCi of F-18 FDG, whole body images are p erformed from the skull base to the midthigh. Images are reviewed on the computer in the coronal, ax ial, and sagittal planes. Reconstructed rotating images are created on independent workstation and r eviewed on the computer. A localization and attenuation correction CT is performed in conjunction w ith the PET scan. SCAN: Fourth PET scan at this institution. Surveillance. FINDINGS: SKULL BASE AND NECK: No suspicious hypermetabolic uptake. CHEST, MEDIASTINUM, AND HILAR REGION: Background mediastinal uptake demonstrates a maximal SUV of 2.6 . Abnormal FDG avidity begins in the subcarinal circumferentially thickened esophagus extending over 8 cm on the sagittal image terminating just above the diaphragmatic hiatus with a maximal SUV of 10.2 ( previous exam maximal SUV of 4.34). Enlarged left paraesophageal lymph node on series 3 image 103 mariama sures 1.5 cm in short axis and demonstrates a maximum SUV of 3.7 (previously measuring 1 cm with max SUV of 4.11). Left paraesophageal lymph node superior to this on series 3 image 94 measures up to 2.1 cm in short axis and demonstrates a maximum SUV of 11.1 (previously measuring 1.9 x 1.3 cm with max SUV of 8.16). Superior to this a subcarinal lymph node on series 3 image 90 measures 1.9 cm in short axis and demonstrates an SUV of 3.1 (previously measuring 1.6 x 1.1 cm within SUV of 4.3). ABDOMEN AND PELVIS: Background unaffected hepatic parenchymal abdominal uptake measures a maximal SUV of 2.4 and maximal splenic uptake measures 2.1. Gastrohepatic lymph node that previously demonstrated a maximum SUV of 3.2 and measured 1.5 cm has in creased in size measuring 1.7 cm although maximum SUV is minimally decreased now measuring 2.3. This is seen on series 3 image 131. Inferior to this a periaortic lymph node has also slightly decreased i n avidity with a maximum SUV of 5.7 cm measuring 1.4 cm on series 3 image 139 and previously measurin g 1.1 cm. Conglomeration of aortocaval lymph nodes, left paracentrally on series 3 image 163 demonstr ate a maximal SUV of 10.2 measuring up to 2.8 cm in short axis and on the right measure up to 2.6 cm in short axis with a maximal SUV of 12.6. These have slightly increased in size from the prior exam a nd are similar to previous of the of 11.4 on the prior exam. Smaller left periaortic lymph node crani al to this on series 3 image 153 measures 2.2 cm in short axis and demonstrates a maximum SUV of 10.2 . Additionally there are numerous new hepatic masses with the largest in the right hepatic lobe in segm ent 8 demonstrating maximal SUV of 15.9. This is ill-defined on this noncontrast CT and measures appr oximately 3.0 x 2.7. Conglomeration of 2 masses at the hepatic dome demonstrates a maximal SUV uptake of 14.0 and measure up to 5.5 x 3.1 cm on series 3 image 109. There are at least 12 masses located i n both right and left hepatic lobes. Single calcification is seen within the posterior right hepatic lobe. OSSEOUS STRUCTURES: No suspicious hypermetabolic uptake. Again there is increased uptake within the r ight acromioclavicular joint that is not above mediastinal background and is again favored to be infl ammatory. OTHER CT: Scattered areas of subsegmental atelectasis are seen within the lungs. There is no evidence of pulmonary mass or pulmonary nodule. No pleural effusion or focal consolidation. Right-sided Medip ort again terminates in the cavoatrial junction. Bilateral polypoid mucosal thickening either represe nting mucosal polyps or retention cysts are seen within the maxillary sinuses. Retroareolar symmetric gynecomastia is again noted bilaterally. Coronary artery calcifications are moderate within the left anterior descending coronary artery. Stable calcified hilar and subcarinal granulomas. Subcentimeter benign calcified parenchymal nodes are again noted bilaterally. As stated above there are numerous new hypoattenuated hepatic lesions most compatible with metastasis with the largest conglomeration in the hepatic dome and the second largest lesion in segment 8. Gall bladder contains layering gallstones within the gallbladder body. The unenhanced adrenal glands splee n, pancreas, and right kidney are unremarkable. Again noted are multiple left-sided nonobstructing re nal calculi with the largest in the lower pole measuring 8 mm and 2 other within the mid pole measuri ng 7 mm and 3 mm. As described above there is adenopathy within the abdomen. Heterogenous prostate is redemonstrated with central zone calcifications. Small fat filled umbilical hernia is seen. Moderate degenerative changes of thoracolumbar and lumbosacral spine are similar to the prior. Degenerative c hanges of the right acromioclavicular joint and sacroiliac joints are also again noted. IMPRESSION: Progression of disease. Increase in maximal SUV within the target lesion (biopsy proven e sophageal neoplasm) from 4.3 on the prior exam to 10.2 on the current exam. Additionally numerous hyp ermetabolic hepatic masses are most compatible with metastasis. Lymphadenopathy within the chest and abdomen is variable in response, but overall stable.
== END | disposition home or self-care (01) ==
LOC: RADPETMAIN 12:30
PROVIDERS: ATTEND Internal Medicine Hematology & Oncology
DX: C15.5 Malignant neoplasm of lower third of esophagus (principal); R59.0 Localized enlarged lymph nodes
CPT/HCPCS: 78815; A9552

== ENCOUNTER 2017-03-03 00:11 | Emergency (ER) | payer MEDICARE ==
[2017-03-03] MEDS ORDERED: OXYMETAZOLINE 0.05% NASL SPRAY 1 SPRAY BOTTLE NASAL STA (00:23)
--- NOTE | 2017-03-03 00:36 | ED ---
ENT HPI - General Chief complaint: ENT Stated complaint: Nose Bleed Time Seen by Provider: 03/03/17 00:18 Source: patient, family, RN notes reviewed Mode of arrival: ambulatory Limitations: no limitations - History of Present Illness Initial comments: 71-year-old male presents emergency Department chief complaint of epistaxis. Patient states that he had a nosebleed on Sunday which bled on and off of the day but resolved. He developed another nosebleed on the right side this evening around 8 PM he states it started Sunday after but started again. Patient states he did have some blood in his throat and he coughed up. He states he was laying on his back snoring very loudly when symptoms started per . Patient does take half a baby aspirin and states he does not take any other blood thinners. Patient denies headache, dizziness, chest pain, shortness breath. Patient states the bleeding has essentially stopped at this time. - Related Data Home Medications Medication Instructions Recorded Confirmed Aspirin 81 mg PO DAILY 03/19/14 02/02/17 Atenolol [Tenormin] 50 mg PO DAILY 03/19/14 02/02/17 Multivitamin [Men's Multi-Vitamin] 1 tab PO DAILY 03/19/14 02/02/17 Simvastatin [Zocor] 40 mg PO HS 03/19/14 02/02/17 Cholecalciferol [Vitamin D3] 5,000 unit PO DAILY 04/11/16 02/02/17 Docusate [Colace] 200 mg PO HS 01/06/17 02/02/17 Gabapentin [Neurontin] 300 mg PO TID 01/06/17 02/02/17 Vitamin B Complex 1 cap PO DAILY 01/06/17 02/02/17 traMADol HCL [Ultram] 50 mg PO Q6HR PRN 02/02/17 02/02/17 Previous Rx's Medication Instructions Recorded Tamsulosin [Flomax] 0.4 mg PO DAILY #7 cap 02/02/17 Allergies Allergy/AdvReac Type Severity Reaction Status Date / Time No Known Allergies Allergy Verified 03/03/17 00:17 Review of Systems ROS Statement: Those systems with pertinent positive or pertinent negative responses have been documented in the HPI. ROS Other: All systems not noted in ROS Statement are negative. Past Medical History Past Medical History: Cancer, Hyperlipidemia, Hypertension Additional Past Medical History / Comment(s): esophageal cancer, hx kidney stones History of Any Multi-Drug Resistant Organisms: None Reported Past Surgical History: Tonsillectomy Additional Past Surgical History / Comment(s): COLONOSCOPY, lithotripsy, Past Anesthesia/Blood Transfusion Reactions: No Reported Reaction Past Psychological History: No Psychological Hx Reported Smoking Status: Never smoker Past Alcohol Use History: None Reported Past Drug Use History: None Reported - Past Family History Mother Family Medical History: Cancer Additional Family Medical History / Comment(s): breast General Exam Limitations: no limitations General appearance: alert, in no apparent distress Head exam: Present: atraumatic, normocephalic, normal inspection Eye exam: Present: normal appearance, PERRL, EOMI. Absent: scleral icterus, conjunctival injection, periorbital swelling ENT exam: Present: normal oropharynx, mucous membranes moist, TM's normal bilaterally, normal external ear exam, other (Old blood noted in the right nostril no active bleeding). Absent: normal exam Neck exam: Present: normal inspection, full ROM. Absent: tenderness, meningismus, lymphadenopathy Respiratory exam: Present: normal lung sounds bilaterally. Absent: respiratory distress, wheezes, rales, rhonchi, stridor Cardiovascular Exam: Present: regular rate, normal rhythm, normal heart sounds. Absent: systolic murmur, diastolic murmur, rubs, gallop, clicks Course Vital Signs 03/03/17 03/03/17 00:13 01:16 Temperature 97 F L Pulse Rate 96 Respiratory 24 Rate Blood Pressure 136/68 121/57 O2 Sat by Pulse 98 Oximetry - Reevaluation(s) Reevaluation #1: 03/03/17 00:36 Afrin nasal spray was given in both nostrils, nose clamp applied patient be rechecked in 10 minutes blood pressure to be rechecked. Medical Decision Making - Medical Decision Making 8-year-old male presented for an nosebleed. Patient's symptoms have resolved after nasal clip and Afrin. Patient we discharged with nasal clip and Afrin use for the next 2-3 days. He'll follow up with on-call ENT Dr. Rogel return parameters were discussed. Disposition Clinical Impression: Epistaxis Disposition: HOME SELF-CARE Condition: Stable Instructions: Nosebleed (ED) Additional Instructions: Please return to the Emergency Department if symptoms worsen or any other concerns. Referrals: Torsten Nuñez MD [Primary Care Provider] - 1-2 days Flavio Rogel MD [STAFF PHYSICIAN] - 1-2 days Time of Disposition: 01:25
[2017-03-03 01:34] VITALS: BP 125/57; PULSE 69; RESP 17; TEMP 98.1
== END 2017-03-03 01:31 | disposition home or self-care (01) ==
LOC: EC 00:11
DX: R04.0 Epistaxis (principal); E78.5 Hyperlipidemia, unspecified; I10 Essential (primary) hypertension; Z85.01 Personal history of malignant neoplasm of esophagus; Z79.82 Long term (current) use of aspirin; Z79.899 Other long term (current) drug therapy
CPT/HCPCS: 99283

== ENCOUNTER → 2017-04-21 | Outpatient (CLI) | payer MEDICARE ==
--- NOTE | 2017-04-23 13:05 | PE ---
Nuclear medicine PET/CT HISTORY: Esophageal carcinoma Patient received 13.4 mCi F-18 FDG intravenously in delayed scanning was performed from the skull bas e to the mid thighs. Correlation to prior nuclear medicine PET/CT 01/13/2017 Neck and chest: Inflammatory changes present within the maxillary sinuses and sphenoid, there is like ly mucus retention cyst on the left and possibly right maxillary sinus. No evident cervical adenopath y. Salivary glands show symmetric appearance. No suspicious hypermetabolic uptake. There is a Port-A- Cath in the right pectoral region, courses via the internal jugular approach to the superior vena cav a. No mediastinal, axillary, or hilar adenopathy. Coronary artery calcifications noted incidentally. Distal esophagus shows abnormal thickening, SUV 5.6, local luis activity suspected, some left hilar adenopathy also present, SUV is only 0.1.. Subpleural nodular density in the right upper lobe on axial image 66 anteriorly may be postinflammato ry. There is no pleural or pericardial effusion. Some additional scattered probable postinflammatory changes present within the lungs. Subcarinal node has decreased in size, no hypermetabolic uptake. ABDOMEN: There are multiple hypodense foci scattered within the liver which are not as well seen on n oncontrast exam. Corresponding hypermetabolic uptake is present. There are at least 10 lesions presen t. Largest lesions are present within the right lobe, SUV values approximately 6-7, smaller lesions s how SUVs of approximately 4. Small nodes present immediately anterior to the aorta at the level of th e hiatus shows an SUV of 3.7. There is a large left retroperitoneal soft tissue mass measuring 5.1 x 3.7 cm with an SUV of approximately 19.5 which is increased in size. The right-sided retroperitoneal node between the aorta and inferior vena cava now measures approximately 3.3 cm in greatest dimension and is decreased in size compared to prior, no associated hypermetabolic uptake. Gallstones are noted incidentally. Prostate is enlarged and shows associated calcifications. Nonobstr uctive left renal calculi noted at the lower pole as on prior. Osseous structures are not significantly changed. IMPRESSION: Large retroperitoneal soft tissue mass has increased in size and shows persistent abnorma l hypermetabolic uptake. Liver lesions have decreased in activity as compared to prior exam as has t he right-sided retroperitoneal node and distal esophagus hypermetabolic uptake which has improved com pared to previous exam.
== END | disposition home or self-care (01) ==
LOC: RADPETMAIN 08:26
PROVIDERS: ATTEND Internal Medicine Hematology & Oncology
DX: C15.5 Malignant neoplasm of lower third of esophagus (principal); K76.9 Liver disease, unspecified; R19.09 Other intra-abdominal and pelvic swelling, mass and lump
CPT/HCPCS: 78815; A9552

== ENCOUNTER 2017-07-10 08:59 | Inpatient (IN) | payer MEDICARE ==
[2017-07-10] MEDS ORDERED: SODIUM CHLORIDE 0.9% 1,000 ML IV STA (09:52)
[2017-07-10] MEDS ORDERED: MORPHINE SULFATE 4 MG/ML SYRINGE IVP STA ×2 (09:53→12:25)
[2017-07-10] MEDS ORDERED: ONDANSETRON 4 MG/2 ML VIAL IVP STA (09:53)
--- NOTE | 2017-07-10 10:06 | ED ---
General Adult HPI - General Chief complaint: Abdominal Pain Stated complaint: NVD-Ca Pt Time Seen by Provider: 07/10/17 09:43 Source: patient, RN notes reviewed Mode of arrival: wheelchair Limitations: no limitations - History of Present Illness Initial comments: Patient 71-year-old male significant past medical history for esophageal cancer , last dose chemotherapy 2 weeks ago presenting to the emergency room today with a chief complaint of left lower quadrant pain and episode of nausea vomiting. Patient states the pain has been getting worse last 3 days. Does admit to an episode of nausea vomiting last night. Patient states was due for next dose of chemotherapy today they called the office was advised complete emergency room. Patient admits some pain that is constant left lower quadrant. Rates an 8/10. Denies any other complaints or symptoms. Patient denies any recent shortness of breath, chest pain, numbness or tingling, dysuria or hematuria, constipation, headaches or visual changes, or any other complaints. - Related Data Home Medications Medication Instructions Recorded Confirmed Aspirin 81 mg PO DAILY 03/19/14 07/10/17 Atenolol [Tenormin] 50 mg PO DAILY 03/19/14 07/10/17 Multivitamin [Men's Multi-Vitamin] 1 tab PO DAILY 03/19/14 07/10/17 Cholecalciferol [Vitamin D3] 5,000 unit PO DAILY 04/11/16 07/10/17 Docusate [Colace] 200 mg PO HS 01/06/17 07/10/17 Gabapentin [Neurontin] 300 mg PO TID 01/06/17 07/10/17 Vitamin B Complex 1 cap PO DAILY 01/06/17 07/10/17 traMADol HCL [Ultram] 50 mg PO Q8H PRN 02/02/17 07/10/17 Bisacodyl [Dulcolax] 5 mg PO DAILY 07/10/17 07/10/17 Clotrimazole Maribell [Mycelex 10 mg MUCOUS MEM QID 07/10/17 07/10/17 Maribell] Simvastatin [Zocor] 20 mg PO HS 07/10/17 07/10/17 Previous Rx's Medication Instructions Recorded Tamsulosin [Flomax] 0.4 mg PO DAILY #7 cap 02/02/17 Allergies Allergy/AdvReac Type Severity Reaction Status Date / Time No Known Allergies Allergy Verified 07/10/17 09:46 Review of Systems ROS Statement: Those systems with pertinent positive or pertinent negative responses have been documented in the HPI. ROS Other: All systems not noted in ROS Statement are negative. Past Medical History Past Medical History: Cancer, Hyperlipidemia, Hypertension Additional Past Medical History / Comment(s): esophageal cancer, hx kidney stones History of Any Multi-Drug Resistant Organisms: None Reported Past Surgical History: Tonsillectomy Additional Past Surgical History / Comment(s): COLONOSCOPY, lithotripsy, Past Anesthesia/Blood Transfusion Reactions: No Reported Reaction Past Psychological History: No Psychological Hx Reported Smoking Status: Never smoker Past Alcohol Use History: None Reported Past Drug Use History: None Reported - Past Family History Mother Family Medical History: Cancer Additional Family Medical History / Comment(s): breast General Exam - General Exam Comments Initial Comments: General: The patient is awake and alert, in no distress, and does not appear acutely ill. Eye: Pupils are equal, round and reactive to light, extra-ocular movements are intact. No nystagmus. There is normal conjunctiva bilaterally. No signs of icterus. Ears, nose, mouth and throat: There are moist mucous membranes and no oral lesions. Neck: The neck is supple, there is no tenderness or JVD. Cardiovascular: There is a regular rate and rhythm. No murmur, rub or gallop is appreciated. Respiratory: Lungs are clear to auscultation, respirations are non-labored, breath sounds are equal. No wheezes, stridor, rales, or rhonchi. Gastrointestinal: Abdomen soft on palpation. Patient does have tenderness left lower quadrant. No rebound tenderness. No guarding. No CVA tenderness. Musculoskeletal: Normal ROM, no tenderness. Strength 5/5. Sensation intact. Pulses equal bilaterally 2+. Neurological: A&O x 3. CN II-XII intact, There are no obvious motor or sensory deficits. Coordination appears grossly intact. Speech is normal. Skin: Skin is warm and dry and no rashes or lesions are noted. Psychiatric: Cooperative, appropriate mood & affect, normal judgment. Limitations: no limitations Course Vital Signs 07/10/17 07/10/17 09:16 11:53 Temperature 97.3 F L Pulse Rate 90 69 Respiratory 18 18 Rate Blood Pressure 136/81 142/65 O2 Sat by Pulse 97 95 Oximetry Medical Decision Making - Medical Decision Making Patient's labs been reviewed. Sodium 126. Remaining labs reviewed. Urinalysis showing no sign of infection at this time. Urine culture is pending. Patient's CT the abdomen and pelvis reviewed and shows 1. Findings highly suggestive of the right side of pyelonephritis. 2. Known lower esophageal carcinoma. There has been interval disease progression with enlargement of the lower left paraesophageal lymph node (4.0 cm versus 1.6 cm there were 2017) and too numerous to count Pulmonary nodules measuring up to 2.8 cm. Gastrohepatic ligament lymph nodes, retroperitoneal lymph nodes, and hepatic metastatic since are unchanged in appearance. 3. Eyedrop gallbladder with cholelithiasis. 4. Hypodense areas aren't spleen could represent splenic lesions. However, given peripheral wedge- shaped shaped configuration too many of these areas, multiple splenic infarcts should also be considered. As read by Dr. Luna. Results were discussed with attending physician Dr. Michael along with the patient. Patient will be started on antibiotics Rocephin. Will be admitted to the hospital for further evaluation with consults to oncology - Lab Data Result diagrams: 07/10/17 10:00 07/10/17 10:00 Lab Results 07/10/17 07/10/17 07/10/17 Range/Units 10:00 10:00 10:00 WBC 8.2 (3.8-10.6) k/uL RBC 3.64 L (4.30-5.90) m/uL Hgb 10.3 L (13.0-17.5) gm/dL Hct 32.1 L (39.0-53.0) % MCV 88.0 (80.0-100.0) fL MCH 28.3 (25.0-35.0) pg MCHC 32.2 (31.0-37.0) g/dL RDW 17.8 H (11.5-15.5) % Plt Count 216 (150-450) k/uL Neutrophils % 85 % Lymphocytes % 5 % Monocytes % 8 % Eosinophils % 0 % Basophils % 0 % Neutrophils # 7.0 (1.3-7.7) k/uL Lymphocytes # 0.4 L (1.0-4.8) k/uL Monocytes # 0.6 (0-1.0) k/uL Eosinophils # 0.0 (0-0.7) k/uL Basophils # 0.0 (0-0.2) k/uL Hypochromasia Slight Poikilocytosis Slight Anisocytosis Slight Sodium 126 L (137-145) mmol/L Potassium 4.8 (3.5-5.1) mmol/L Chloride 91 L (98-107) mmol/L Carbon Dioxide 26 (22-30) mmol/L Anion Gap 9 mmol/L BUN 13 (9-20) mg/dL Creatinine 0.64 L (0.66-1.25) mg/dL Est GFR (CKD-EPI)AfAm >90 (>60 ml/min/1.73 sqM) Est GFR (CKD-EPI)NonAf >90 (>60 ml/min/1.73 sqM) Glucose 155 H (74-99) mg/dL Plasma Lactic Acid Malachi 1.5 (0.7-2.0) mmol/L Calcium 9.2 (8.4-10.2) mg/dL Total Bilirubin 0.8 (0.2-1.3) mg/dL AST 58 (17-59) U/L ALT 35 (21-72) U/L Alkaline Phosphatase 67 (38-126) U/L Total Protein 7.3 (6.3-8.2) g/dL Albumin 3.1 L (3.5-5.0) g/dL Amylase <30 L (30-110) U/L Lipase 51 (23-300) U/L Urine Color Urine Appearance (Clear) Urine pH (5.0-8.0) Ur Specific [place] (1.001-1.035) Urine Protein (Negative) Urine Glucose (UA) (Negative) Urine Ketones (Negative) Urine Blood (Negative) Urine Nitrite (Negative) Urine Bilirubin (Negative) Urine Urobilinogen (<2.0) mg/dL Ur Leukocyte Esterase (Negative) Urine RBC (0-5) /hpf Urine WBC (0-5) /hpf Ur Squamous Epith Cells (0-4) /hpf Amorphous Sediment (None) /hpf Urine Mucus (None) /hpf 07/10/17 Range/Units 10:08 WBC (3.8-10.6) k/uL RBC (4.30-5.90) m/uL Hgb (13.0-17.5) gm/dL Hct (39.0-53.0) % MCV (80.0-100.0) fL MCH (25.0-35.0) pg MCHC (31.0-37.0) g/dL RDW (11.5-15.5) % Plt Count (150-450) k/uL Neutrophils % % Lymphocytes % % Monocytes % % Eosinophils % % Basophils % % Neutrophils # (1.3-7.7) k/uL Lymphocytes # (1.0-4.8) k/uL Monocytes # (0-1.0) k/uL Eosinophils # (0-0.7) k/uL Basophils # (0-0.2) k/uL Hypochromasia Poikilocytosis Anisocytosis Sodium (137-145) mmol/L Potassium (3.5-5.1) mmol/L Chloride (98-107) mmol/L Carbon Dioxide (22-30) mmol/L Anion Gap mmol/L BUN (9-20) mg/dL Creatinine (0.66-1.25) mg/dL Est GFR (CKD-EPI)AfAm (>60 ml/min/1.73 sqM) Est GFR (CKD-EPI)NonAf (>60 ml/min/1.73 sqM) Glucose (74-99) mg/dL Plasma Lactic Acid Malachi (0.7-2.0) mmol/L Calcium (8.4-10.2) mg/dL Total Bilirubin (0.2-1.3) mg/dL AST (17-59) U/L ALT (21-72) U/L Alkaline Phosphatase (38-126) U/L Total Protein (6.3-8.2) g/dL Albumin (3.5-5.0) g/dL Amylase (30-110) U/L Lipase (23-300) U/L Urine Color Yellow Urine Appearance Cloudy (Clear) Urine pH 6.5 (5.0-8.0) Ur Specific [place] 1.012 (1.001-1.035) Urine Protein Negative (Negative) Urine Glucose (UA) Negative (Negative) Urine Ketones Negative (Negative) Urine Blood Trace H (Negative) Urine Nitrite Negative (Negative) Urine Bilirubin Negative (Negative) Urine Urobilinogen <2.0 (<2.0) mg/dL Ur Leukocyte Esterase Negative (Negative) Urine RBC 1 (0-5) /hpf Urine WBC 2 (0-5) /hpf Ur Squamous Epith Cells <1 (0-4) /hpf Amorphous Sediment Occasional H (None) /hpf Urine Mucus Rare H (None) /hpf Disposition Clinical Impression: Pyelonephritis, Esophageal cancer, Metastatic disease Disposition: ADMITTED IP TO THIS HOSP Condition: Undetermined Is patient prescribed a controlled substance at d/c from ED?: No Referrals: Torsten Nuñez MD [Primary Care Provider] - 1-2 days Time of Disposition: 12:21
[2017-07-10 10:23] LABS: Anisocytosis Slight; Basophils % (A) 0 %; Eosinophils % (A) 0 %; HCT 32.1 % (39.0-53.0); HGB 10.3 gm/dL (13.0-17.5); Hypochromasia Slight; Lymphocytes # (A) 0.4 k/uL (1.0-4.8); Lymphocytes % (A) 5 %; MCH 28.3 pg (25.0-35.0); MCHC 32.2 g/dL (31.0-37.0); Mean Platelet Volume 6.9; Monocytes # (A) 0.6 k/uL (0-1.0); Monocytes % (A) 8 %; Neutrophils % (A) 85 %; Platelet Count 216 k/uL (150-450); Poikilocytosis Slight; RBC 3.64 m/uL (4.30-5.90); RDW 17.8 % (11.5-15.5); WBC 8.2 k/uL (3.8-10.6)
[2017-07-10 10:34] LABS: ALT 35 U/L (21-72); AST 58 U/L (17-59); Albumin 3.1 g/dL (3.5-5.0); Alkaline Phosphatase 67 U/L (38-126); Amylase <30 U/L (30-110); Anion Gap 9 mmol/L; Blood Urea Nitrogen 13 mg/dL (9-20); Calcium 9.2 mg/dL (8.4-10.2); Carbon Dioxide 26 mmol/L (22-30); Chloride 91 mmol/L (98-107); Glucose 155 mg/dL (74-99); Lipase 51 U/L (23-300); Potassium 4.8 mmol/L (3.5-5.1); Sodium 126 mmol/L (137-145); Total Bilirubin 0.8 mg/dL (0.2-1.3); Total Protein 7.3 g/dL (6.3-8.2)
[2017-07-10 10:43] LABS: Amorphous Sediment,Urine Occasional /hpf; Appearance,Urine Cloudy (Clear); Bilirubin,Urine Negative (Negative); Blood,Urine Trace (Negative); Color,Urine Yellow; Glucose,Urine (UA) Negative (Negative); Ketones,Urine Negative (Negative); Leukocyte Esterase,Urine Negative (Negative); Mucus,Urine Rare /hpf; Nitrite,Urine Negative (Negative); PH, Urine 6.5 (5.0-8.0); Protein,Urine Negative (Negative); RBC,Urine 1 /hpf (0-5); Specific Gravity,Urine 1.012 (1.001-1.035); Squamous Epithelial Cell,Urine <1 /hpf (0-4); Urobilinogen,Urine <2.0 mg/dL (<2.0); WBC,Urine 2 /hpf (0-5)
[2017-07-10] MEDS ORDERED: RX INFO: IV CONTRAST WAS GIVEN 1 EACH MISC MISCELLANE PRN (10:47)
--- NOTE | 2017-07-10 12:06 | CT ---
EXAMINATION TYPE: CT abdomen pelvis w con DATE OF EXAM: 07/10/2017 COMPARISON: PET CT 04/21/2017 HISTORY: 71-year-old male Back pain X 1 month TECHNIQUE: Contiguous axial scanning of the abdomen and pelvis following administration of 100 ml Iso linda 300 IV contrast. Delayed images through the kidneys and coronal/sagittal reconstructions perform ed. CT DLP: 1024.2 mGycm Automated exposure control for dose reduction was used. FINDINGS: Heart is normal size without pericardial effusion. Impression wall thickening lower esophagus redemonstrated. This appears to have increased in the inte rval. Dramatic progression of a lower left paraesophageal lymph node partially visualized measuring u p to 4.0 cm versus 1.6 cm, previously. There are too numerous to count pulmonary nodules visualized in the lower lungs are new measuring up to 2.8 cm. No pleural effusion. Numerous hepatic masses are redemonstrated largest measuring up to 7.1 cm in the right hepatic dome s eems relatively similar. Mildly hydropic gallbladder with cholelithiasis. Portal venous system appears patent. No biliary duct al dilatation seen. Gastrohepatic ligament lymph nodes are relatively similar measuring up to 9 mm. Large left periaortic lymph node measures 4.8 cm, not significantly changed. Heterogeneous enhancement of the liver, possible new splenic lesions. However, given the wedge-shaped peripheral appearance of some of these lesions, multiple infarcts are difficult to exclude. Aortocaval lymph node measures 3.1 cm and was not hypermetabolic on the prior PET/CT, probably site o f treated disease. The adrenal glands, left kidney, and pancreas show no gross abnormality. Patchy hypoenhancement in areas of the right kidney are noted. No dilated small bowel, free fluid, or free air. Moderate stool in the cecum and ascending colon. Mil d diverticulosis of the junction of the descending and sigmoid colon. No pericolonic inflammatory derrek nge seen. Small fatty umbilical hernia. Bladder urine distended. Prostate gland prominent at 4.9 cm wide with central prostatic calcification s. Small amount of pelvic free fluid. Bones: Degenerative changes at the hips, right SI joint, and lower lumbar spine. No osseous cyst or process seen at this time. IMPRESSION: 1. FINDINGS HIGHLY SUGGESTIVE OF RIGHT-SIDED PYELONEPHRITIS. APPROPRIATE CLINICAL CORRELATION IS MAURO MMENDED. 2. KNOWN LOWER ESOPHAGEAL CARCINOMA. THERE HAS BEEN INTERVAL DISEASE PROGRESSION WITH ENLARGEMENT OF THE LOWER LEFT PARAESOPHAGEAL LYMPH NODE (4.0 CM VERSUS 1.6 CM ON 04/21/2017) AND TOO NUMEROUS TO COUN T NEW PULMONARY NODULES MEASURING UP TO 2.8 CM. GASTROHEPATIC LIGAMENT LYMPH NODES, RETROPERITONEAL L YMPH NODES, AND HEPATIC METASTASES ARE UNCHANGED IN APPEARANCE. 3. HYDROPIC GALLBLADDER WITH CHOLELITHIASIS. IF CONCERN FOR EARLY ACUTE CHOLECYSTITIS, FOLLOW-UP ULTR ASOUND OR HIDA SCAN. 4. HYPODENSE AREAS IN THE SPLEEN COULD REPRESENT SPLENIC LESIONS. HOWEVER, GIVEN PERIPHERAL WEDGE-SHA PED CONFIGURATION TO MANY OF THESE AREAS, MULTIPLE SPLENIC INFARCTS SHOULD ALSO BE CONSIDERED.
[2017-07-10] MEDS ORDERED: cefTRIAXone IN SWFI 1,000 MG/10 ML SYRINGE IVP STA (12:18)
[2017-07-10] MEDS ORDERED: ONDANSETRON 4 MG/2 ML VIAL IVP PRN (12:41)
[2017-07-10] MEDS ORDERED: ACETAMINOPHEN TAB 325 MG TAB PO PRN (12:41)
[2017-07-10] MEDS ORDERED: SODIUM CHLORIDE 0.9% 1,000 ML IV ONE (12:41)
[2017-07-10] MEDS ORDERED: NALOXONE 0.4 MG/ML 1 ML VIAL IV PRN (12:41)
[2017-07-10] MEDS: HYDROcodone/APAP 5-325MG 1 EACH TAB PO PRN (18:08)
[2017-07-10] MEDS: GABAPENTIN 300 MG CAP PO SCH ×2 (18:09→22:53)
[2017-07-10] MEDS: CLOTRIMAZOLE TROCHE 10 MG TROCHE MUCOUS MEM SCH ×2 (18:09→22:05)
[2017-07-10] MEDS: TAMSULOSIN 0.4 MG CAP.ER.24H PO SCH (18:09)
[2017-07-10] MEDS: MORPHINE SULFATE 4 MG/ML SYRINGE IV PRN ×2 (18:29→22:53)
[2017-07-10] MEDS ORDERED: cefTRIAXone IN SWFI 1,000 MG/10 ML SYRINGE IVP SCH (21:00)
[2017-07-10] MEDS: ATORVASTATIN 10 MG TAB PO SCH (21:32)
[2017-07-10] MEDS ORDERED: MELATONIN 3 MG TABLET PO PRN (22:35)
[2017-07-10] MEDS ORDERED: MAGNESIUM HYDROXIDE 2,400 MG/10 ML CUP PO PRN (22:35)
[2017-07-10] MEDS ORDERED: ALPRAZolam 0.25 MG TAB PO PRN (22:35)
[2017-07-10] MEDS ORDERED: CALCIUM CARBONATE 500 MG CHEWABLE PO PRN (22:35)
[2017-07-10] MEDS ORDERED: LACTULOSE 20 GM/30 ML CUP PO PRN (22:35)
--- NOTE | 2017-07-10 23:34 | HP ---
HISTORY AND PHYSICAL DATE OF SERVICE: 07/10/2017 PRESENTING COMPLAINT: Low back pain. HISTORY OF PRESENTING COMPLAINT: This is a very pleasant 71-year-old patient who has presented to the ER. Patient was diagnosed with esophageal cancer some time ago. Follows with Dr. Gurrola. Last chemotherapy was 2 weeks ago. Patient's blood counts have been good, according to the patient. Patient noticed that he had lower back pain radiating to the front off and on for the last 2 months. The patient has noticed decreased appetite. BMs a good. Patient did vomit x1 last night and has been having some nausea. Denied any fever or chills. Patient was due for another chemotherapy today, but patient was sent in. Patient had a CT scan of the abdomen and pelvis done that shows increasing thickness of the esophageal cancer, increasing lymph nodes in the chest and numerous hepatic masses; seems to be similar compared to the prior, and the pulmonary nodules are increased in size, and also the lower left paraesophageal lymph node has progressed in size. Patient normally has bowel movements. No trouble with urination, though he has BPH symptoms. REVIEW OF SYSTEMS: CONSTITUTIONAL: Tired. HEENT: Patient has chronic tinnitus. RESPIRATORY: None. CARDIOVASCULAR: None. GASTROINTESTINAL: As above. GENITOURINARY: BPH symptoms. DERMATOLOGICAL: None. HEMATOLOGICAL: None. LYMPHATICS: None. PSYCHIATRY: None. NEUROLOGICAL: Numbness and tingling in the both the hands and feet. Decreased vision in the left eye. PAST MEDICAL HISTORY: 1. Esophageal cancer. 2. Hyperlipidemia. 3. Hypertension. 4. Peripheral neuropathy, more in the hands than feet. 5. Slight trouble with swallowing. 6. Kidney stones. 7. Tinnitus. 8. BPH. PAST SURGICAL HISTORY: 1. Tonsillectomy. 2. Port-A-Cath. 3. Lithotripsy. SOCIAL HISTORY: . No smoking. Alcohol occasionally. 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 FAMILY HISTORY: Breast cancer. HOME MEDICATIONS: 1. Mycelex 10 mg q.i.d. 2. Ultram 50 mg q.8 p.r.n. 3. Colace 200 mg at bedtime. 4. Aspirin 81 mg p.o. daily. 5. Neurontin 300 mg p.o. t.i.d. 6. Vitamin B complex 1 capsule p.o. daily. 7. Flomax 0.4 mg p.o. daily. 8. Zocor 20 mg at bedtime. 9. Men's Multivitamin 1 tablet p.o. daily. 10.Vitamin D3 5000 units p.o. daily. 11.Tenormin 50 mg p.o. daily. 12.Dulcolax 5 mg p.o. daily. ALLERGIES: NONE. PHYSICAL EXAMINATION: VITAL SIGNS ON PRESENTATION: Temperature 97.3, pulse 90, respiration 18, blood pressure 136/81, pulse ox 97% on room air. GENERAL APPEARANCE: Average build. Lying in bed, tired-appearing. EYES: Pupils equal. Conjunctivae normal. HEENT: External appearance of nose and ears normal. Oral cavity normal. NECK: JVD not raised. Mass not palpable. RESPIRATORY: Effort normal. LUNGS: Fair air entry. CARDIOVASCULAR: First and second sounds normal. No edema. ABDOMEN: Soft, nontender. Liver and spleen not palpable. LYMPHATIC: No lymph node palpable in neck or axillae. PSYCHIATRY: Alert and oriented x3. Mood and affect are normal. NEUROLOGICAL: Pupils equal. Cranial nerves grossly intact. Power and sensation grossly intact. MUSCULOSKELETAL: Evidence of osteoarthritis, especially in the hands. Minimal tenderness over the lumbar spine just above the hip. INVESTIGATIONS: White count 8.2, hemoglobin 10.3, platelets 216. Sodium 126, potassium 4.8, BUN 13, creatinine 0.64, albumin 3.1. CT scan of the abdomen and pelvis; results as above. ASSESSMENT: 1. Patient has acute on subacute pain in the lower lumbar area. Of course differential includes metastatic disease, though with this age it is quite common to have a lumbar osteoarthritis that could be manifesting as the same. It is not causing any interference with his bowels or urine, with some element of radiculopathy, as the pain does seem to come a bit around. 2. Esophageal cancer, being treated with chemotherapy; seems to have progressed on the CT scan with metastatic disease, including probably the lung nodules and in the liver. That makes it stage IV. 3. Essential hypertension. 4. Hyperlipidemia. 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 6. Benign prostatic hypertrophy. 7. Chronic tinnitus. 8. Mild dysphagia due to esophageal cancer, not progressive. 9. Hyponatremia. 10.Hyponatremia with euvolemia. 11.Normocytic anemia, likely due to underlying malignancy and possibly chemotherapy. 12.Hypoalbuminemia, likely from mild protein-calorie malnutrition. 13.Gallstones, asymptomatic. Does not need any further intervention. PLAN: Will check patient's serum and urine osmolality in the morning. In the meantime, put the patient on free fluid restriction. Will do a plain x-ray of the lumbar spine. Will give nutritional supplements and consult Oncology. Care was discussed with the patient. Questions were answered. Will also order a K-pad for the back pain. MMODL / IJN: [id number] /
[2017-07-11] MEDS: HYDROcodone/APAP 5-325MG 1 EACH TAB PO PRN ×3 (05:08→12:09)
[2017-07-11 08:11] LABS: Anisocytosis Slight; Basophils % (A) 0 %; Eosinophils % (A) 0 %; HCT 29.8 % (39.0-53.0); HGB 9.6 gm/dL (13.0-17.5); Hypochromasia Slight; Lymphocytes # (A) 0.7 k/uL (1.0-4.8); Lymphocytes % (A) 9 %; MCH 28.4 pg (25.0-35.0); MCHC 32.2 g/dL (31.0-37.0); MCV 88.2 fL (80.0-100.0); Mean Platelet Volume 7.3; Monocytes # (A) 0.9 k/uL (0-1.0); Monocytes % (A) 10 %; Neutrophils # (A) 6.7 k/uL (1.3-7.7); Neutrophils % (A) 79 %; Platelet Count 193 k/uL (150-450); Poikilocytosis Slight; RBC 3.38 m/uL (4.30-5.90); RDW 17.5 % (11.5-15.5); WBC 8.5 k/uL (3.8-10.6)
[2017-07-11 08:35] LABS: ALT 35 U/L (21-72); AST 45 U/L (17-59); Albumin 2.7 g/dL (3.5-5.0); Alkaline Phosphatase 64 U/L (38-126); Anion Gap 9 mmol/L; Blood Urea Nitrogen 9 mg/dL (9-20); Carbon Dioxide 25 mmol/L (22-30); Chloride 94 mmol/L (98-107); Glucose 90 mg/dL (74-99); Potassium 4.2 mmol/L (3.5-5.1); Sodium 128 mmol/L (137-145); Total Bilirubin 0.5 mg/dL (0.2-1.3); Total Protein 6.4 g/dL (6.3-8.2)
--- NOTE | 2017-07-11 08:36 | XR ---
EXAMINATION TYPE: XR lumbosacral spine min 4V DATE OF EXAM: 07/11/2017 COMPARISON: CT 07/10/2017 HISTORY: 71-year-old male low back pain TECHNIQUE: 5 views FINDINGS: Degenerated levoconvex curvature with 5 lumbar type vertebral bodies. Hypertrophic facet arthropathy mid to lower lumbar spine. Trace grade 1 retrolisthesis at L1-L2 and L2-L3. Vertebral body heights ar e maintained. Moderate disc space narrowing with endplate sclerosis and spondylosis at L5-S1. Mild en dplate spondylosis at additional levels. No pars interarticularis defects. Incidentally, several prominent air-filled small bowel loops are present measuring up to 3.1 cm. [place] papi gas remains. IMPRESSION: 1. Hypertrophic facet arthropathy mid to lower lumbar spine. There are degenerative grade 1 retrolist heses at L1-L2 and L2-L3. 2. Moderate degenerative disc disease L5-S1 and mild at additional levels. 3. No vertebral compression collapse. 4 prominent air-filled small bowel loops could be transient or could reflect generalized ileus or enteritis.
[2017-07-11] MEDS: B COMPLEX-VIT C-VIT E-ZINC 1 EACH TAB PO SCH (08:38)
[2017-07-11] MEDS: ASPIRIN 81 MG PO SCH (08:38)
[2017-07-11] MEDS: ATENOLOL 50 MG TAB PO SCH (08:38)
[2017-07-11] MEDS: ENOXAPARIN 40 MG/0.4 ML SYRINGE SQ SCH (08:40)
[2017-07-11] MEDS: GABAPENTIN 300 MG CAP PO SCH ×3 (08:40→22:12)
[2017-07-11] MEDS: MULTIVITAMINS, THERA 1 EACH TAB PO SCH (08:40)
[2017-07-11] MEDS: CLOTRIMAZOLE TROCHE 10 MG TROCHE MUCOUS MEM SCH ×4 (08:40→22:12)
[2017-07-11] MEDS: TAMSULOSIN 0.4 MG CAP.ER.24H PO SCH (08:40)
[2017-07-11] MEDS: BISACODYL 5 MG TABLET.DR PO SCH (08:50)
[2017-07-11] MEDS ORDERED: MORPHINE ORAL SOLN 10 MG/5 ML CUP PO PRN (10:23)
--- NOTE | 2017-07-11 13:09 | P.CONS ---
History of Present Illness - Reason for Consult Consult date: 07/11/17 Esophageal Cancer Requesting physician: Christophe Doe - Chief Complaint Right sided radiating pain - History of Present Illness Mr Swanson is a pleasant WM, who had presented to his PCP in 03/14 with c/o upper abdominal fullness on eating, and intermittent difficulty in swallowing over the past month. He was also c/o pain in the left lower chest/LUQ, with radiation around the abdomen. He had lost about 10-12 lbs. He was referred for an EGDand had that on 03/17/16, revealing an extensive , inflamed mass extending from the mid esophagus to the GE junction. 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 Biopsy from the 2nd part of the duodenum revealed adeno ca also, but this was felt to be a contaminant from the esophagus, as there was no mass in the duodenum. CT sac of abdomen/pelvis on 03/14/16 revealed no definite evidence of metastatic disease. CT chest from 03/23/16 was positive for thickening of the distal esophagus. PET scan from 03/25/16 showed uptake in the lower 1/2 of the esophagus , a 2 cm left paraesophageal node, left retrocrural, gastrohepatic ligament ( 1.1 cm) and 2.2 cm retroperitoneal node, compatible with metastatic involvement ( SUV value 12.9 in the nodes) HER2/ARCHIE on esophageal biopsy was positive. Echocardiogram on 04/18/2016 revealed normal EF. He started mFOLFOX+Herceptin on 04/25/2016. Repeat echocardiogram on 07/11/2016 revealed normal EF. Repeat PET scan on 07/17/2016 revealed significant improvement in his disease. He had total of 10 cycles of mFOLFOX/herceptin,last one on 09/05/2016,was discontinued due to progressive neuropathy and left elbow significant bursitis. He resumed infusional 5FU/herceptin only on 10/03/2016,then 5 FU was discontinued for cycle#12 and had herceptin only on 10/17/2016. Repeat PET scan of 10/28/2016 revealed evidence of disease progression in esophagous,paraesophageal and abdominal nodes. On 11/07/2016,he started second line weekly irinotecan.(chosen over taxol/ cyramza due to neuropathy). On 01/13/2017,repeat PET scan revealed evidence of disease progression and new liver lesions,irinotecan was discontinued. PDL-1 was negative,MSI could not be done. He started cyramza/taxol on 02/06/2017. On 04/23/2017 repeat PET scan revealed improvement in his diseae (the retroperitoneal nodes are smaller,it was reviewed with Dr Ford) On 05/15/2017,taxol was held due to progressive neuropathy,he continued with cyramza. He is tolerating treatment well,feels tired,his neuropathy is stable,he has left sided posterior,inferior rib pain, takes tramodol qid prn as needed He is currently undergoing treatment with Taxol (Taxol on hold since 05/22) and Cyramza (Anti-angiogenesis). Last Taxol given on 05/15/17, last Cyramza on 06/26/17 He presented to emergency department with complaints of nausea, vomiting and increasing persistent lower back pain that radiatk pain that is radiating around the right sidee. Patient and at bedside, pain has been intermittently and progressively increasing over the past month. Tramadol was controlling but now is not and he is at max dosing. Morphine is causing too much lethargy, and norco is somewhat controlling pain. Nausea is not a factor at this time. The CT scan was reviewed and concern for progressive disease. Constipation over weekend, then with help of laxative on Sunday he had a bowel move,ent. He is having a hard time keeping eyes open to talk to me. He has not walked since admission. Review of Systems A 14 point review of systems assessed and completed and all negative except HPI Past Medical History Past Medical History: Cancer, Hyperlipidemia, Hypertension, Renal Disease Additional Past Medical History / Comment(s): 2017 diagnosed with esophageal cancer tx with chemo (3 rounds) and last chemo about 2 weeks ago, neuropathy bilateral hands and feet, some difficulty swallowing, kidney stones, tinnitis bilaterally, BPH. History of Any Multi-Drug Resistant Organisms: None Reported Past Surgical History: Tonsillectomy Additional Past Surgical History / Comment(s): 04/18/16 R sided port a cath, COLONOSCOPY, lithotripsy, Past Anesthesia/Blood Transfusion Reactions: No Reported Reaction Past Psychological History: No Psychological Hx Reported Additional Psychological History / Comment(s): Pt resides with his spouse. He is independent. Smoking Status: Never smoker Past Alcohol Use History: Occasional Past Drug Use History: None Reported - Past Family History Mother Family Medical History: Cancer Additional Family Medical History / Comment(s): breast cancer Father Family Medical History: CVA/TIA Additional Family Medical History / Comment(s): Father had a CVA. He at the age of 96yrs. Medications and Allergies Home Medications Medication Instructions Recorded Confirmed Type Aspirin 81 mg PO DAILY 03/19/14 07/10/17 History Atenolol [Tenormin] 50 mg PO DAILY 03/19/14 07/10/17 History Multivitamin [Men's Multi-Vitamin] 1 tab PO DAILY 03/19/14 07/10/17 History Cholecalciferol [Vitamin D3] 5,000 unit PO DAILY 04/11/16 07/10/17 History Docusate [Colace] 200 mg PO HS 01/06/17 07/10/17 History Gabapentin [Neurontin] 300 mg PO TID 01/06/17 07/10/17 History Vitamin B Complex 1 cap PO DAILY 01/06/17 07/10/17 History Tamsulosin [Flomax] 0.4 mg PO DAILY #7 cap 02/02/17 07/10/17 Rx traMADol HCL [Ultram] 50 mg PO Q8H PRN 02/02/17 07/10/17 History Bisacodyl [Dulcolax] 5 mg PO DAILY 07/10/17 07/10/17 History Clotrimazole [place] [Mycelex 10 mg MUCOUS MEM QID 07/10/17 07/10/17 History Mar[place]ell] Simvastatin [Zocor] 20 mg PO HS 07/10/17 07/10/17 History Allergies Allergy/AdvReac Type Severity Reaction Status Date / Time No Known Allergies Allergy Verified 07/10/17 09:46 Physical Exam Vitals: Vital Signs Temp Pulse Pulse Resp BP BP Pulse Ox 07/11/17 06:46 99.1 F 62 17 140/76 92 L 07/10/17 23:00 96.9 F L 63 17 140/77 95 07/10/17 14:25 97.7 F 66 18 126/73 95 07/10/17 13:31 98.3 F 74 18 131/60 96 07/10/17 12:41 64 18 148/70 98 07/10/17 11:53 69 18 142/65 95 Intake and Output 0507/11/17 07/11/17 22:59 06:59 14:59 Intake Total 290 Balance 290 Intake: Oral 290 Other: # Voids 2 4 - Constitutional General appearance: average body habitus, cooperative, mild distress - EENT Eyes: EOMI, PERRLA, dentition normal ENT: NA/AT, thrush - Neck Supple, Trachea Midline Neck: normal ROM - Respiratory Respiratory: bilateral: CTA (No increased effort) - Cardiovascular Rhythm: regular Heart sounds: normal: S1, S2 - Gastrointestinal General gastrointestinal: normal bowel sounds, soft, tenderness Localized gastrointestinal: tender: RLQ, guarding: RLQ - Integumentary Integumentary: pale - Neurologic Neurologic: CNII-XII intact - Psychiatric Psychiatric: A&O x's 3, appropriate affect, intact judgment & insight Results CBC & Chem 7: 07/11/17 07:33 07/11/17 07:33 Labs: Abnormal Lab Results - Last 24 Hours (Table) 07/10/17 07/10/17 07/11/17 Range/Units 10:00 10:08 07:33 RBC 3.38 L (4.30-5.90) m/uL Hgb 9.6 L (13.0-17.5) gm/dL Hct 29.8 L (39.0-53.0) % RDW 17.5 H (11.5-15.5) % Lymphocytes # 0.7 L (1.0-4.8) k/uL Sodium 126 L (137-145) mmol/L Chloride 91 L (98-107) mmol/L Creatinine 0.64 L (0.66-1.25) mg/dL Glucose 155 H (74-99) mg/dL Osmolality (280-301) mosm/kg Calcium (8.4-10.2) mg/dL Albumin 3.1 L (3.5-5.0) g/dL Amylase <30 L (30-110) U/L Urine Blood Trace H (Negative) Amorphous Sediment Occasional H (None) /hpf Urine Mucus Rare H (None) /hpf 07/11/17 Range/Units 07:33 RBC (4.30-5.90) m/uL Hgb (13.0-17.5) gm/dL Hct (39.0-53.0) % RDW (11.5-15.5) % Lymphocytes # (1.0-4.8) k/uL Sodium 128 L (137-145) mmol/L Chloride 94 L (98-107) mmol/L Creatinine 0.63 L (0.66-1.25) mg/dL Glucose (74-99) mg/dL Osmolality 264 L (280-301) mosm/kg Calcium 8.0 L (8.4-10.2) mg/dL Albumin 2.7 L (3.5-5.0) g/dL Amylase (30-110) U/L Urine Blood (Negative) Amorphous Sediment (None) /hpf Urine Mucus (None) /hpf Microbiology - Last 24 Hours (Table) 07/10/17 10:08 Urine Culture - Preliminary Urine,Clean Catch Chest x-ray: report reviewed CT scan - abdomen: report reviewed CT scan - pelvis: report reviewed Assessment and Plan (1) Esophageal cancer Current Visit: Yes Status: Acute Code(s): C15.9 - MALIGNANT NEOPLASM OF ESOPHAGUS, UNSPECIFIED SNOMED Code(s): 226552518 (2) Hyponatremia Current Visit: Yes Status: Acute Code(s): E87.1 - HYPO-OSMOLALITY AND HYPONATREMIA SNOMED Code(s): 54216666 (3) Intractable pain Current Visit: Yes Status: Acute Code(s): R52 - PAIN, UNSPECIFIED SNOMED Code(s): 25225386 (4) Metastatic disease Current Visit: Yes Status: Acute Code(s): C79.9 - SECONDARY MALIGNANT NEOPLASM OF UNSPECIFIED SITE SNOMED Code(s): 746761317 (5) Pyelonephritis Current Visit: Yes Status: Acute Code(s): N12 - TUBULO-INTERSTITIAL NEPHRITIS, NOT SPCF ACUTE OR CHRONIC SNOMED Code(s): 83577218 Plan: Assessment and Recommendations: 1. Intractable Lower back pain radiating to right side - Likely multifactoral component of pyelonephritis, progressive disease and ?splenic infarcts. - Tramadol over past few weeks is not controlling pain (max dosing) - Morphine with increased lethargy, [place] with moderate control, not consistent - Recommend better pain control prior to discharge for decreased chance of re- admission, I will discuss the addition of low dose fentanyl patch to level pain , provide consistent coverage at low intervals throughout 24 hour period (would initiate at 25mcg). - Will require bowel protocol with pain management, rec senna-s 2 tabs daily, miralax prn 2. Hyponatremia - Low osmolarity -Component of SIADH versus nutrition 3. Critical Illness Myopathy - Secondary to pain, Pain medications, and/or decreased mobility - Increase activity prior to discharge - Evaluate with PT/OT and evaluation of safety prior to discharge 4. Pylonephritis - Continue abx 5. DISPO Plan - Would recommend holding discharge until pain is better controlled and strength increased. Albumin trending down, increase po protein intake. - When stable follow-up in office with Dr. Gurrola to re-evaluate likely progressive disease and treatment plan options. Physician Attestation: I have completed the full history and physical of this patient and discussed and agree with Margie Jimenez's above dictation, dictated as a scribe
[2017-07-11 14:33] VITALS: BMI 27.1
[2017-07-11] MEDS ORDERED: NAPROXEN 250 MG TAB PO STA (14:48)
[2017-07-11] MEDS ORDERED: NAPROXEN 250 MG TAB PO SCH (15:00)
[2017-07-11] MEDS: BACLOFEN 10 MG TAB PO SCH ×2 (17:05→22:11)
[2017-07-11] MEDS: traMADol 50 MG TAB PO PRN (20:11)
[2017-07-11] MEDS: ATORVASTATIN 10 MG TAB PO SCH (20:11)
--- NOTE | 2017-07-11 21:05 | PN ---
PROGRESS NOTE DATE OF SERVICE: 07/11/2017 PRESENTING COMPLAINT: Low back pain. INTERVAL HISTORY: This is a patient with metastatic esophageal cancer. He presented with low back pain. X-ray of the lumbar spine has confirmed severe DJD. Patient did not sleep too well because of the pain. His is at the bedside. REVIEW OF SYSTEMS: Done for constitutional, cardiovascular, GI, pulmonary, musculoskeletal; relevant findings as above. Patient was a bit sleepy because patient had received some [place]. CURRENT MEDICATIONS: Reviewed. PHYSICAL EXAMINATION: Temperature 97.2, pulse 72, respiration 20, blood pressure 130/76, pulse ox 96% on room air. GENERAL APPEARANCE: Lying in bed, tired-appearing. EYES: Pupils equal. Conjunctivae normal. HEENT: External appearance of nose and ears normal. Oral cavity normal. NECK: JVD not raised. Mass not palpable. RESPIRATORY: Effort normal. LUNGS: Fair air entry. CARDIOVASCULAR: First and second sounds normal. No edema. ABDOMEN: Soft, nontender. Liver and spleen not palpable. PSYCHIATRY: Alert and oriented x3. Mood and affect tired-appearing. INVESTIGATIONS: Sodium 128, potassium 4.2. Serum osmolality is 264. Albumin 2.7. Lumbar spine x-ray shows moderate DJD at the L5-S1 level. ASSESSMENT: 1. Acute flareup of osteoarthritis at the L5-S1 level with possible radiculopathy. 2. Esophageal cancer, progressive. Patient is due for a PET scan in 2 weeks. 3. Essential hypertension. 4. Hyperlipidemia. 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 6. Benign prostatic hypertrophy. 7. Chronic tinnitus. 8. Mild dysphagia due to esophageal cancer. 9. Hypo-osmolar hyponatremia. 10.Normocytic anemia, likely due to underlying malignancy. 11.Hypoalbuminemia from mild protein-calorie malnutrition. 12.Gallstones, asymptomatic. PLAN: For better pain control, will add naproxen 250 mg 3 times a day. Add baclofen for muscle spasm and K-pad. Will hold off any narcotics at the present time to see if we can avoid the same. Care was discussed in detail with the patient. If pain is controlled, then patient should be able to be discharged tomorrow. Encouraged the patient to be out of bed. MMODL / IJN: [id number] /
[2017-07-11] MEDS: NAPROXEN 250 MG TAB PO SCH (22:11)
[2017-07-12] MEDS: traMADol 50 MG TAB PO PRN ×2 (03:51→14:24)
[2017-07-12] MEDS: NAPROXEN 250 MG TAB PO SCH ×3 (07:53→21:20)
[2017-07-12] MEDS: GABAPENTIN 300 MG CAP PO SCH ×3 (07:53→21:20)
[2017-07-12] MEDS: ATENOLOL 50 MG TAB PO SCH (07:53)
[2017-07-12] MEDS: BACLOFEN 10 MG TAB PO SCH ×3 (07:53→21:20)
[2017-07-12] MEDS: BISACODYL 5 MG TABLET.DR PO SCH (07:53)
[2017-07-12] MEDS: B COMPLEX-VIT C-VIT E-ZINC 1 EACH TAB PO SCH (07:53)
[2017-07-12] MEDS: TAMSULOSIN 0.4 MG CAP.ER.24H PO SCH (07:53)
[2017-07-12] MEDS: CLOTRIMAZOLE TROCHE 10 MG TROCHE MUCOUS MEM SCH ×4 (07:54→21:20)
[2017-07-12] MEDS: ENOXAPARIN 40 MG/0.4 ML SYRINGE SQ SCH (07:54)
[2017-07-12] MEDS: ASPIRIN 81 MG PO SCH (07:54)
[2017-07-12] MEDS: MULTIVITAMINS, THERA 1 EACH TAB PO SCH (07:54)
[2017-07-12] MEDS: HYDROcodone/APAP 5-325MG 1 EACH TAB PO PRN (09:04)
--- NOTE | 2017-07-12 15:04 | P.PAINCN ---
History of Present Illness - Reason for Consult Consult date: 07/12/17 Intractable pain and medication side effects - Chief Complaint Low back pain, sedation from opiates - History of Present Illness Is a very pleasant 71-year-old man with a history of esophageal cancer who was admitted to the hospital with low back pain that was felt to be pyelonephritis. He was treated for this. He is currently taking morphine and [place]. Both the patient and his report that he is sedated from the medicine and this side effect is intolerable. It is helping his pain. Past Medical History Past Medical History: Cancer, Hyperlipidemia, Hypertension, Renal Disease Additional Past Medical History / Comment(s): 2017 diagnosed with esophageal cancer tx with chemo (3 rounds) and last chemo about 2 weeks ago, neuropathy bilateral hands and feet, some difficulty swallowing, kidney stones, tinnitis bilaterally, BPH. History of Any Multi-Drug Resistant Organisms: None Reported Past Surgical History: Tonsillectomy Additional Past Surgical History / Comment(s): 04/18/16 R sided port a cath, COLONOSCOPY, lithotripsy, Past Anesthesia/Blood Transfusion Reactions: No Reported Reaction Past Psychological History: No Psychological Hx Reported Additional Psychological History / Comment(s): Pt resides with his spouse. He is independent. Smoking Status: Never smoker Past Alcohol Use History: Occasional Past Drug Use History: None Reported - Past Family History Mother Family Medical History: Cancer Additional Family Medical History / Comment(s): breast cancer Father Family Medical History: CVA/TIA Additional Family Medical History / Comment(s): Father had a CVA. He at the age of 96yrs. Medications and Allergies Home Medications Medication Instructions Recorded Confirmed Type Aspirin 81 mg PO DAILY 03/19/14 07/10/17 History Atenolol [Tenormin] 50 mg PO DAILY 03/19/14 07/10/17 History Multivitamin [Men's Multi-Vitamin] 1 tab PO DAILY 03/19/14 07/10/17 History Cholecalciferol [Vitamin D3] 5,000 unit PO DAILY 04/11/16 07/10/17 History Docusate [Colace] 200 mg PO HS 01/06/17 07/10/17 History Gabapentin [Neurontin] 300 mg PO TID 01/06/17 07/10/17 History Vitamin B Complex 1 cap PO DAILY 01/06/17 07/10/17 History Tamsulosin [Flomax] 0.4 mg PO DAILY #7 cap 02/02/17 07/10/17 Rx traMADol HCL [Ultram] 50 mg PO Q8H PRN 02/02/17 07/10/17 History Bisacodyl [Dulcolax] 5 mg PO DAILY 07/10/17 07/10/17 History Clotrimazole Maribell [Mycelex 10 mg MUCOUS MEM QID 07/10/17 07/10/17 History Maribell] Simvastatin [Zocor] 20 mg PO HS 07/10/17 07/10/17 History Allergies Allergy/AdvReac Type Severity Reaction Status Date / Time No Known Allergies Allergy Verified 07/10/17 09:46 Physical Exam Vitals: Vital Signs Temp Pulse Resp BP Pulse Ox 07/12/17 07:10 98.2 F 89 18 115/69 95 07/11/17 22:48 98.4 F 79 18 138/77 91 L Intake and Output 07/11/17 07/12/17 07/12/17 22:59 06:59 14:59 Other: Voiding Method Toilet Toilet Urinal Urinal # Voids 3 4 Patient resting comfortably in his hospital bed. He does not appear any acute distress. He arouses easily and answers all questions appropriately. Focused physical examination reveals no significant motor deficits in the lower extremity. Reflexes are blunted but symmetric at the Achilles bilaterally. He does have a stocking and glove neuropathy present which is consistent with his past medical history. He is not tender to palpation over his lumbar spine. There are no findings consistent with acute fracture or significant joint arthropathy. Results CBC & Chem 7: 07/11/17 07:33 07/11/17 07:33 Labs: Microbiology - Last 24 Hours (Table) 07/10/17 10:00 Blood Culture - Preliminary Blood No Growth after 48 hours 07/10/17 10:08 Urine Culture - Final Urine,Clean Catch Assessment and Plan (1) Low back pain Narrative/Plan: Discontinue [place] and morphine Start the patient on Percocet 10/325 one tablet by mouth every 6 hours when necessary. This could be titrated to every 4 hours and even 2 tablets every 6 hours if necessary. Patient scheduled for imaging studies the next 2 weeks that will further delineate his disease state with his esophageal cancer. He also scheduled for an MRI of his head to be sure that metastatic disease is not causing his mental status changes. He is welcome to follow-up in the pain clinic to discuss interventional options once he has been discharged and after he has received the results of his PET scan. Current Visit: Yes Status: Acute Code(s): M54.5 - LOW BACK PAIN SNOMED Code(s): 917403920 (2) Esophageal cancer Current Visit: Yes Status: Acute Code(s): C15.9 - MALIGNANT NEOPLASM OF ESOPHAGUS, UNSPECIFIED SNOMED Code(s): 016015318 (3) Intractable pain Current Visit: Yes Status: Acute Code(s): R52 - PAIN, UNSPECIFIED SNOMED Code(s): 10472329 PQRS Measure Charge Sheet PQRS Narrative: Smoking Status Never smoker Do You Want the Pneumonia Vaccine Up to Date Vaccine AT THIS TIME? Blood Pressure [Left Arm] 115/69 Blood Pressure 131/60 Pain Intensity [Head] 0 Pain Intensity [Right Back] 2 Pain Intensity 8 Pain Scale Used Numeric (1 - 10) Scale Used Numeric (1 - 10) Home Medications: Ambulatory Orders Aspirin 81 mg PO DAILY 03/19/14 Atenolol [Tenormin] 50 mg PO DAILY 03/19/14 Multivitamin [Men's Multi-Vitamin] 1 tab PO DAILY 03/19/14 Cholecalciferol [Vitamin D3] 5,000 unit PO DAILY 04/11/16 Docusate [Colace] 200 mg PO HS 01/06/17 Gabapentin [Neurontin] 300 mg PO TID 01/06/17 Vitamin B Complex 1 cap PO DAILY 01/06/17 Tamsulosin [Flomax] 0.4 mg PO DAILY #7 cap 02/02/17 traMADol HCL [Ultram] 50 mg PO Q8H PRN 02/02/17 Bisacodyl [Dulcolax] 5 mg PO DAILY 07/10/17 Clotrimazole Maribell [Mycelex Maribell] 10 mg MUCOUS MEM QID 07/10/17 Simvastatin [Zocor] 20 mg PO HS 07/10/17
--- NOTE | 2017-07-12 16:34 | P.PN ---
Subjective Progress Note Date: 07/12/17 Principal diagnosis: Metastatic Esophageal Cancer Patient seen in follow-up today, he is still having pain and having a difficult time finding the balance with the lethargy from the pain medications with trying to control the pain. He has his eyes closed but answering me while talking with him. His states he is usually much more alert, although he has been requiring larger amounts of sedative medications to control his pain. Objective - Vital Signs Vital signs: Vital Signs Temp 98.5 F 07/12/17 15:00 Pulse 72 07/12/17 15:00 Resp 18 07/12/17 15:00 BP 116/61 07/12/17 15:00 Pulse Ox 95 07/12/17 15:00 Intake & Output 07/11/17 07/12/17 07/12/17 18:59 06:59 18:59 Intake Total 290 600 Balance 290 600 Weight 88.451 kg Intake: Oral 290 600 Other: Voiding Method Toilet Toilet Urinal Urinal # Voids 1 4 4 # Bowel Movements 1 - Constitutional General appearance: Present: cooperative, no acute distress - EENT Eyes: Present: EOMI, PERRLA ENT: Present: NA/AT, normal oropharynx - Neck Neck: Present: normal ROM - Respiratory Respiratory: bilateral: CTA (no increased effort) - Cardiovascular Rhythm: regular Heart sounds: normal: S1, S2 - Gastrointestinal General gastrointestinal: Present: normal bowel sounds, soft - Integumentary Integumentary: Present: pale - Neurologic Neurologic: Present: CNII-XII intact - Musculoskeletal Musculoskeletal: Present: generalized weakness, right sided weakness - Psychiatric Psychiatric Comment(s): Lethargic, responds appropriately, but slowly Psychiatric: Present: A&O x's 3 - Labs CBC & Chem 7: 07/11/17 07:33 07/11/17 07:33 Labs: Microbiology - Last 24 Hours (Table) 07/10/17 10:00 Blood Culture - Preliminary Blood No Growth after 48 hours 07/10/17 10:08 Urine Culture - Final Urine,Clean Catch Assessment and Plan (1) Esophageal cancer Current Visit: Yes Status: Acute Code(s): C15.9 - MALIGNANT NEOPLASM OF ESOPHAGUS, UNSPECIFIED SNOMED Code(s): 486289034 (2) Hyponatremia Current Visit: Yes Status: Acute Code(s): E87.1 - HYPO-OSMOLALITY AND HYPONATREMIA SNOMED Code(s): 26293727 (3) Intractable pain Current Visit: Yes Status: Acute Code(s): R52 - PAIN, UNSPECIFIED SNOMED Code(s): 46575116 (4) Metastatic disease Current Visit: Yes Status: Acute Code(s): C79.9 - SECONDARY MALIGNANT NEOPLASM OF UNSPECIFIED SITE SNOMED Code(s): 862881708 (5) Pyelonephritis Current Visit: Yes Status: Acute Code(s): N12 - TUBULO-INTERSTITIAL NEPHRITIS, NOT SPCF ACUTE OR CHRONIC SNOMED Code(s): 69761832 Plan: Assessment and Recommendations: 1. Intractable Lower back pain radiating to right side - Likely multifactoral component of pyelonephritis, progressive disease and ?splenic infarcts. - Tramadol over past few weeks is not controlling pain (max dosing) - Morphine with increased lethargy, [place] with moderate control, not consistent - Recommend better pain control prior to discharg. difficult balance between baclofen and narcotic management with lethargy and increasing safety risks. I have discussed with Dr. Avila and we will have pain service evaluate for the option of a celiac plexus block as an option - Will require bowel protocol with pain management, rec senna-s 2 tabs daily, miralax prn 2. Hyponatremia - Low osmolarity -Component of SIADH versus nutrition 3. Critical Illness Myopathy - Secondary to pain, Pain medications, and/or decreased mobility - Increase activity prior to discharge - Evaluate with PT/OT and evaluation of safety prior to discharge 4. Pylonephritis - Continue abx 5. DISPO Plan - when pain is stabilized - When stable follow-up in office with Dr. Gurrola to re-evaluate likely progressive disease and treatment plan options. Physician Attestation: I have completed the full history and physical of this patient and discussed and agree with Margie Jimenez's above dictation, dictated as a scribe
[2017-07-12] MEDS: oxyCODONE-APAP 10-325MG 1 EACH TAB PO PRN ×2 (17:03→23:09)
[2017-07-12] MEDS: ATORVASTATIN 10 MG TAB PO SCH (21:20)
--- NOTE | 2017-07-13 00:24 | PN ---
PROGRESS NOTE DATE OF SERVICE: July 11, 2017. PRESENTING COMPLAINT: Low back pain. This is a patient with metastatic esophageal cancer. I ordered naproxen, baclofen, heating pad yesterday. Both the daytime nurse and the evening and the night nurse and the nurse this morning reported to me that the patient's pain had seen much better and patient was walking better, but when I came to the room, the said that the patient's pain was no different and then I decided to proceed with a pain consult management. The patient is rather sleepy, had not slept too well last night. The patient also on baclofen. REVIEW OF SYSTEMS: Done for constitutional, cardiovascular, GI, pulmonary, musculoskeletal and relevant findings as above. CURRENT MEDICATIONS: Reviewed the patient is on: Baclofen 5 mg 3 times a day, Neurontin 3 mg 3 times a day, naproxen 250 3 times a day, Ultram p.r.n. EXAMINATION: Temperature 98.2, pulse 89, respiratory 18, blood pressure 105/69, pulse ox 95% on room air. General appearance: Lying in bed, sleepy. EYES: Pupils are equal. Conjunctivae normal. HEENT external appearance of nose and ears normal. Oral cavity normal. Neck JVD not raised. Mass not palpable. Respiratory effort lungs fair entry. Cardiovascular 1st and 2nd sounds normal. No edema. ABDOMEN: Soft, nontender. Liver and spleen not palpable. Psychiatry: The patient is sleepy, does answer questions. INVESTIGATIONS: No blood work from today. ASSESSMENT: 1. Acute flare of osteoarthritis L5-S1 level with possible radiculopathy. 2. Esophageal cancer, progressive. Patient due for a PET scan in 2 weeks. 3. Essential hypertension. 4. Hyperlipidemia. 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 6. Benign prostatic hypertrophy. 7. Chronic tinnitus. 8. Mild dysphagia due to esophageal cancer. 9. Hypoosmolar hyponatremia. 10.Normocytic anemia likely due to underlying malignancy. 11.Hypoalbuminemia from mild protein-calorie malnutrition. 12.Gallstones, asymptomatic. PLAN: I had a lengthy talk with the patient's , did talk to her about the pros and cons of narcotics including complications like constipation and drowsiness. After discussion, decided to hold discharge at the present time. Will get pain management. Was later informed they have added [place]. Other medication and treatment plan is to continue. Repeat labs in the morning. Also spoke to Margie at length from Oncology about the Pain Management and different options. Total time spent today was about 40 minutes with over 25 minutes of discussion. EDELMIRAL / IJN: [id number] /
[2017-07-13] MEDS: oxyCODONE-APAP 10-325MG 1 EACH TAB PO PRN ×3 (07:36→22:49)
[2017-07-13] MEDS: NAPROXEN 250 MG TAB PO SCH ×3 (07:36→20:31)
[2017-07-13] MEDS: GABAPENTIN 300 MG CAP PO SCH ×3 (07:37→20:31)
[2017-07-13] MEDS: TAMSULOSIN 0.4 MG CAP.ER.24H PO SCH (07:37)
[2017-07-13] MEDS: ATENOLOL 50 MG TAB PO SCH (07:37)
[2017-07-13] MEDS: BACLOFEN 10 MG TAB PO SCH ×2 (07:38→15:35)
[2017-07-13] MEDS: B COMPLEX-VIT C-VIT E-ZINC 1 EACH TAB PO SCH (07:38)
[2017-07-13] MEDS: ENOXAPARIN 40 MG/0.4 ML SYRINGE SQ SCH (07:38)
[2017-07-13] MEDS: MULTIVITAMINS, THERA 1 EACH TAB PO SCH (07:38)
[2017-07-13] MEDS: ASPIRIN 81 MG PO SCH (07:38)
[2017-07-13] MEDS: CLOTRIMAZOLE TROCHE 10 MG TROCHE MUCOUS MEM SCH ×4 (07:38→20:31)
[2017-07-13] MEDS: BISACODYL 5 MG TABLET.DR PO SCH (07:43)
--- NOTE | 2017-07-13 12:10 | CDI ---
Last Revision, January 2017 Documentation Clarification Form Date: 07/13/2017 11:57:00 AM From: Eulalia MalikKRYSTIN, CCDS Admit Date: 07/10/2017 1:00:00 PM Patient Name: Hayder Swanson Visit Number: [id number] Discharge Date: ATTENTION: The Clinical Documentation Specialists (CDI) and [facility] Coding Staff appreciate your assistance in clarifying documentation. Please respond to the clarification below the line at the bottom and electronically sign. The CDI & [facility] Coding staff will review the response and follow-up if needed. Please note: Queries are made part of the Legal Health Record. If you have any questions, please contact the author of this message via ITS. Dr. Sacha Avila: Conflicting documentation has been found in the medical record. Per the History & Physical: Presented with low back pain radiating to the front , decreased appetite and nausea. Diagnosis: Flare up of L5-S1 Osteoarthritis. Per the Oncology Consultation: Presented with right side radiating pain to abdomen. Diagnosis: Likely multifactorial component of pyelonephritis, progressive disease & splenic infarcts. History/Risk Factors: Patient has progressive esophageal CA, Osteoarthritis L5- S1 Clinical Indicators: Patient has been taking Tramadol over past few weeks without control of his pain. Morphine is causing increased lethargy. Treatment: Oncology & Pain management consults. IV fluid bolus, IV Ms q4 prn, IV Zofran, IV Rocephin, po Tramadol, po Tylenol In your opinion what is the most clinically appropriate diagnosis for this patient? Intractable pain due to: o Neoplasm (Esophageal Cancer) o Osteoarthritis L4-S1 o Pyelonephritis o Other, please explain o Unable to determine Please continue to document in your progress notes and discharge summary in order to capture severity of illness and risk of mortality. Include clinical findings that support your diagnosis. response in progress notes MTDD
--- NOTE | 2017-07-13 15:44 | P.PN ---
Subjective Progress Note Date: 07/13/17 Principal diagnosis: Metastatic Esophageal Cancer Patient seen in follow-up today, he is still having pain and having a difficult time finding the balance with the lethargy from the pain medications with trying to control the pain. He has his eyes closed but answering me while talking with him. His states he is usually much more alert, although he has been requiring larger amounts of sedative medications to control his pain. 07/13/17 Patient increasing lethargy and confusion today. He is more lethargic than yesterday and still in pain. Consult placed for pain management yesterday to evaluate for a pain block, secondary to opiods likely contributing to patients lethargy. Medications changed, although pain is still present. MRI of brain is ordered. is at bedside. Objective - Vital Signs Vital signs: Vital Signs Temp 97.0 F L 07/13/17 15:10 Pulse 67 07/13/17 15:10 Resp 18 07/13/17 15:10 BP 111/66 07/13/17 15:10 Pulse Ox 92 L 07/13/17 15:10 Intake & Output 07/12/17 07/13/17 07/13/17 18:59 06:59 18:59 Intake Total 1200 1200 Balance 1200 1200 Intake: Oral 1200 1200 Other: Voiding Method Toilet Toilet Urinal Urinal # Voids 1 2 4 - Exam Lethargic and fatigue. - Constitutional General appearance: Present: cooperative, no acute distress - EENT Eyes: Present: EOMI, dentition normal, normal appearance ENT: Present: hard of hearing, normal oropharynx - Respiratory Respiratory: bilateral: CTA - Cardiovascular Rhythm: regular Heart sounds: normal: S1, S2 - Gastrointestinal General gastrointestinal: Present: normal bowel sounds, soft - Integumentary Integumentary: Present: pale - Neurologic Neurologic: Present: focal deficits - Musculoskeletal Musculoskeletal: Present: generalized weakness - Psychiatric Psychiatric Comment(s): Lethargic and sleepy, easily awakens. Psychiatric: Present: A&O x's 3 - Labs CBC & Chem 7: 07/11/17 07:33 07/11/17 07:33 Labs: Microbiology - Last 24 Hours (Table) 07/10/17 10:00 Blood Culture - Preliminary Blood No Growth after 72 hours Assessment and Plan (1) Esophageal cancer Current Visit: Yes Status: Acute Code(s): C15.9 - MALIGNANT NEOPLASM OF ESOPHAGUS, UNSPECIFIED SNOMED Code(s): 845886254 (2) Hyponatremia Current Visit: Yes Status: Acute Code(s): E87.1 - HYPO-OSMOLALITY AND HYPONATREMIA SNOMED Code(s): 21942900 (3) Intractable pain Current Visit: Yes Status: Acute Code(s): R52 - PAIN, UNSPECIFIED SNOMED Code(s): 71828070 (4) Metastatic disease Current Visit: Yes Status: Acute Code(s): C79.9 - SECONDARY MALIGNANT NEOPLASM OF UNSPECIFIED SITE SNOMED Code(s): 687491789 (5) Pyelonephritis Current Visit: Yes Status: Acute Code(s): N12 - TUBULO-INTERSTITIAL NEPHRITIS, NOT SPCF ACUTE OR CHRONIC SNOMED Code(s): 43108080 Plan: Assessment and Recommendations: 1. Intractable Lower back pain radiating to right side - Likely multifactoral component of pyelonephritis, progressive disease and ?splenic infarcts. - Tramadol over past few weeks is not controlling pain (max dosing) - Morphine with increased lethargy, [place] with moderate control, not consistent - Recommend better pain control prior to discharg. difficult balance between baclofen and narcotic management with lethargy and increasing safety risks. I have discussed with Dr. Avila and we will have pain service evaluate for the option of a celiac plexus block as an option - Will require bowel protocol with pain management, rec senna-s 2 tabs daily, miralax prn - Discontinue Baclofen, Decrease opiods, Reconsult pain service for recs regarding NON-Opiod management - such as 2. Hyponatremia - Low osmolarity -Component of SIADH versus nutrition 3. Critical Illness Myopathy - Secondary to pain, Pain medications, and/or decreased mobility - Increase activity prior to discharge - Evaluate with PT/OT and evaluation of safety prior to discharge 4. Pylonephritis - Continue abx 5. Increasing Lethargy and Mental status change - Likely from Medications but in the picture of a metastatic/progressive cancer patient, MRI of the brain is resonable = MRI of brain ordered today = Recheck CBC and CMP DISPO Plan - when pain is stabilized - When stable follow-up in office with Dr. Gurrola to re-evaluate likely progressive disease and treatment plan options.
[2017-07-13 16:29] LABS: Anisocytosis Slight; Basophils % (A) 1 %; Eosinophils # (A) 0.1 k/uL (0-0.7); Eosinophils % (A) 2 %; HCT 30.9 % (39.0-53.0); HGB 9.9 gm/dL (13.0-17.5); Hypochromasia Moderate; Lymphocytes % (A) 15 %; MCHC 32.2 g/dL (31.0-37.0); MCV 90.2 fL (80.0-100.0); Mean Platelet Volume 7.2; Monocytes # (A) 0.6 k/uL (0-1.0); Monocytes % (A) 9 %; Neutrophils % (A) 72 %; Platelet Count 207 k/uL (150-450); Poikilocytosis Slight; RBC 3.43 m/uL (4.30-5.90); RDW 18.2 % (11.5-15.5)
[2017-07-13 16:30] LABS: ALT 37 U/L (21-72); AST 59 U/L (17-59); Albumin 2.9 g/dL (3.5-5.0); Alkaline Phosphatase 75 U/L (38-126); Blood Urea Nitrogen 13 mg/dL (9-20); Calcium 8.9 mg/dL (8.4-10.2); Carbon Dioxide 29 mmol/L (22-30); Glucose 129 mg/dL (74-99); Potassium 4.2 mmol/L (3.5-5.1); Sodium 135 mmol/L (137-145); Total Bilirubin 0.5 mg/dL (0.2-1.3); Total Protein 6.9 g/dL (6.3-8.2)
[2017-07-13 16:43] LABS: Anion Gap 9 mmol/L; Chloride 97 mmol/L (98-107)
[2017-07-13] MEDS: ATORVASTATIN 10 MG TAB PO SCH (20:31)
--- NOTE | 2017-07-13 20:49 | PN ---
PROGRESS NOTE DATE OF SERVICE: 07/12/2017 PRESENTING COMPLAINT: Low back pain. INTERVAL HISTORY: This patient has metastatic esophageal cancer. He presented with acute low back pain, felt to be flareup of osteoarthritis. Yesterday patient was seen by the pain management team, who added [place]. Patient did tolerate some diet per his . Patient was still sleepy. This morning both the workers compensation administrator and nurse practitioner Ms. Jimenez and a nurse did try to call Pain Services, but they were not available for today; a few times they were tried by the nurse. Patient has pretty much been in bed today. REVIEW OF SYSTEMS: Attempted for constitutional, cardiovascular, GI, pulmonary, musculoskeletal; relevant findings as above. CURRENT MEDICATIONS: Reviewed. They include: 1. Neurontin 300 mg 3 times a day. 2. Naproxen 250 mg 3 times a day. 3. Percocet 10 q.6 p.r.n. 4. Ultram. PHYSICAL EXAMINATION: Temperature 97, pulse 67, respiration 18, blood pressure 111/66, pulse ox 92% on room air. GENERAL APPEARANCE: Lying in bed, lethargic but arousable. Does answer questions. EYES: Pupils equal. Conjunctivae normal. HEENT: External appearance of nose and ears normal. Oral cavity normal. NECK: JVD not raised. Mass not palpable. RESPIRATORY: Effort normal. LUNGS: Fair air entry. CARDIOVASCULAR: First and second sounds normal. No edema. ABDOMEN: Soft, non-tender. Liver and spleen not palpable. PSYCHIATRY: Lethargic but arousable. Does answer questions. INVESTIGATIONS: White count 7, hemoglobin 9.9, potassium 4.2. BUN and creatinine are normal. ASSESSMENT: 1. Acute on chronic pain from flareup of osteoarthritis of L5-S1; that is primary osteoarthritis with possible radiculopathy. 2. Esophageal cancer, progressive. Patient is due for a PET scan in 2 weeks. 3. Metabolic encephalopathy; could be from pain medications, although patient is on baclofen. 4. Essential hypertension. 5. Hyperlipidemia. 6. Peripheral neuropathy due to chemotherapy. 7. Benign prostatic hypertrophy. 8. Chronic tinnitus. 9. Mild dysphagia due to esophageal cancer. 10.Hypo-osmolar hyponatremia, improving. 11.Normocytic anemia, likely due to underlying malignancy. 12.Hypoalbuminemia from mild protein-calorie malnutrition. 13.Gallstones, asymptomatic. PLAN: I talked to the patient's at length. At this point we will stop the patient's baclofen; that can affect his mentation. Pain management team was tried to be contacted since morning, but I was informed by the nurse that it is not available. At this point, continue current medication and treatment plan. We were trying to see if celiac plexus block will help the patient's pain. Will await input from them. Will follow. MMNAWAF / IJN: [id number] /
[2017-07-14] MEDS: oxyCODONE-APAP 10-325MG 1 EACH TAB PO PRN ×2 (04:45→23:31)
[2017-07-14] MEDS: MULTIVITAMINS, THERA 1 EACH TAB PO SCH (08:53)
[2017-07-14] MEDS: GABAPENTIN 300 MG CAP PO SCH ×3 (08:53→21:02)
[2017-07-14] MEDS: ATENOLOL 50 MG TAB PO SCH (08:53)
[2017-07-14] MEDS: ASPIRIN 81 MG PO SCH (08:53)
[2017-07-14] MEDS: TAMSULOSIN 0.4 MG CAP.ER.24H PO SCH (08:53)
[2017-07-14] MEDS: CLOTRIMAZOLE TROCHE 10 MG TROCHE MUCOUS MEM SCH ×4 (08:53→21:02)
[2017-07-14] MEDS: NAPROXEN 250 MG TAB PO SCH ×3 (08:53→21:02)
[2017-07-14] MEDS: B COMPLEX-VIT C-VIT E-ZINC 1 EACH TAB PO SCH (08:53)
[2017-07-14] MEDS: ENOXAPARIN 40 MG/0.4 ML SYRINGE SQ SCH (08:56)
[2017-07-14] MEDS: BISACODYL 5 MG TABLET.DR PO SCH (08:56)
--- NOTE | 2017-07-14 18:07 | MR ---
EXAMINATION TYPE: MR brain wo/w con DATE OF EXAM: 07/14/2017 COMPARISON: NONE HISTORY: Mets, altered mental status TECHNIQUE: Multiplanar, multisequence images of the brain and brainstem is performed without and with IV contras t, utilizing 9 mL intravenous Gadavist . FINDINGS: There are scattered foci of varying sizes throughout the infratentorial and supratentorial brain to include the right and left cerebellar hemispheres, right temporal lobe, bilateral frontal an d parietal lobes. These masses show surrounding gliosis, hyperintensity on inversion recovery and T2- weighted sequences, the masses shows intermediate and high signal on T1, low and mixed signal on inve rsion recovery and T2-weighted sequences. Suspect there is some enhancement following contrast admini stration. There are at least 14-15 lesions present. The largest mass on the right within the temporal lobe measures approximately 6.5 cm in anterior to posterior dimension. Some local mass effect due to the large temporal mass is minimal. Midline structures demonstrate normal morphology. The craniocervical junction appears within normal limits. Post contrast images demonstrate no abnormal enhancement. The dural venous sinuses appear pa tent. The visualized sinuses are clear and the globes are intact. IMPRESSION: Findings compatible with metastatic disease, there may have been a hemorrhagic component to these lesions.
--- NOTE | 2017-07-14 20:41 | PN ---
PROGRESS NOTE DATE OF SERVICE: July 14, 2017. PRESENTING COMPLAINT: Lethargic. INTERVAL HISTORY: This patient with metastatic esophageal cancer presented with acute low back pain, felt to be flare-up of osteoarthritis. Because patient is lethargic, the patient's baclofen was cut back. I saw the patient this morning. Patient just had his MRI. The patient's son and his are present. Patient is sitting on the edge of the bed. States his pain is better controlled. He did have some breakfast. REVIEW OF SYSTEMS: Done for constitutional, cardiovascular, GI, pulmonary; relevant findings as above. CURRENT MEDICATIONS: Reviewed. Baclofen was discontinued. The patient is on [place]. PHYSICAL EXAMINATION: On examination, temperature 97.8, pulse 87, respirations 16, blood pressure 120/79, pulse ox 93% on room air. General appearance: Sitting up, tired-appearing. Eyes: Pupils equal. Conjunctivae normal. HEENT: External appearance of nose and ears normal. Oral cavity normal. Neck JVD not raised. Mass not palpable. Respiratory effort normal. Lungs are clear. Cardiovascular: 1st and second sounds normal. No edema. Abdomen: Soft, nontender. Liver and spleen not palpable. The patient lethargic but awake, answering questions. INVESTIGATIONS: MRI results came back this evening show evidence of metastatic disease. ASSESSMENT: 1. Acute metabolic encephalopathy from metastatic disease from esophageal cancer. 2. Acute on chronic osteoarthritis flare up of pain at L5-S1 with possible radiculopathy. 3. Esophageal cancer metastatic pending PET scan in 2 weeks. 4. Essential hypertension. 5. Hyperlipidemia. 6. Peripheral neuropathy due to chemotherapy. 7. Benign prostatic hypertrophy. 8. Chronic tinnitus. 9. Mild dysphagia due to esophageal cancer. 10.Hypoosmolar hyponatremia. 11.Normocytic anemia likely due to underlying malignancy. 12.Hypoalbuminemia from mild protein-calorie malnutrition. 13.Gallstones, asymptomatic. PLAN: Earlier in the day had spoken to the patient's family at the bedside. Encouraged to ambulate. At this time in the evening I will start the patient on steroids and await further input from Oncology. MMODL / IJN: [id number] /
--- NOTE | 2017-07-14 20:43 | PN ---
PROGRESS NOTE ADDENDUM: DATE OF SERVICE: July 13, 2017 My progress note dictated on July 13, 2017 at 19:52 pm, date transcribed on July 13, 2017 at 20:42 pm, the correct date of service should read 07/13/17. MMODL / IJN: [id number] /
--- NOTE | 2017-07-14 20:49 | PN ---
PROGRESS NOTE CORRECTION: DATE OF SERVICE: My note dictated on 07/12/2017 at 23:37, transcribed on 07/14/2017 at 00:14, the correct date of service is 07/12/2017. MMKARLAL / IJN: [id number] /
[2017-07-14] MEDS: DEXAMETHASONE 4 MG TAB PO SCH (21:02)
[2017-07-14] MEDS: ATORVASTATIN 10 MG TAB PO SCH (21:02)
[2017-07-15] MEDS: oxyCODONE-APAP 10-325MG 1 EACH TAB PO PRN ×2 (06:31→20:44)
[2017-07-15] MEDS: NAPROXEN 250 MG TAB PO SCH ×3 (08:00→20:44)
[2017-07-15] MEDS: TAMSULOSIN 0.4 MG CAP.ER.24H PO SCH (08:00)
[2017-07-15] MEDS: DEXAMETHASONE 4 MG TAB PO SCH ×3 (08:00→20:44)
[2017-07-15] MEDS: GABAPENTIN 300 MG CAP PO SCH ×3 (08:00→20:44)
[2017-07-15] MEDS: ENOXAPARIN 40 MG/0.4 ML SYRINGE SQ SCH (08:00)
[2017-07-15] MEDS: MULTIVITAMINS, THERA 1 EACH TAB PO SCH (08:00)
[2017-07-15] MEDS: ATENOLOL 50 MG TAB PO SCH (08:01)
[2017-07-15] MEDS: CLOTRIMAZOLE TROCHE 10 MG TROCHE MUCOUS MEM SCH ×4 (08:01→20:44)
[2017-07-15] MEDS: ASPIRIN 81 MG PO SCH (08:01)
[2017-07-15] MEDS: B COMPLEX-VIT C-VIT E-ZINC 1 EACH TAB PO SCH (08:01)
[2017-07-15] MEDS: BISACODYL 5 MG TABLET.DR PO SCH (08:04)
[2017-07-15] MEDS: ATORVASTATIN 10 MG TAB PO SCH (20:44)
--- NOTE | 2017-07-15 23:30 | PN ---
PROGRESS NOTE DATE OF SERVICE: 07/15/17 PRESENTING COMPLAINT: Tired. INTERVAL HISTORY: This patient has metastatic esophageal cancer, presented with acute low back pain. The patient's back pain is now but better controlled. MRI did confirm metastatic brain disease for which I started the patient on steroids yesterday. Son is at the bedside. Patient did tolerate some food. REVIEW OF SYSTEMS: Done for constitutional, cardiovascular, GI, pulmonary and relevant findings as above. The patient is more awake and communicative. CURRENT MEDICATIONS: Reviewed that include dexamethasone. PHYSICAL EXAMINATION: Temperature 96.9, pulse 89, respiration 16, blood pressure 120/79, pulse ox 94% on room appearance: Sitting up, more awake. Eyes: Pupils equal. Conjunctivae normal. HEENT: External appearance of nose and ears normal. Oral cavity normal. Neck JVD not raised. Mass not palpable. Respiratory effort lungs are clear. Cardiovascular 1st and 2nd sounds normal. No edema. ABDOMEN: Soft nontender. Liver and spleen is not palpable. Psychiatry: Awake, answering questions appropriately. INVESTIGATIONS: No blood work from today. ASSESSMENT: 1. Acute metabolic encephalopathy from metastatic brain disease. 2. Acute on chronic osteoarthritis flare up of L5-S1 with possible radiculopathy. 3. Esophageal cancer, metastasis pending PET scan in 2 weeks. 4. Essential hypertension. 5. Hyperlipidemia. 6. Peripheral neuropathy due to chemotherapy. 7. Benign prostatic hypertrophy. 8. Chronic tinnitus. 9. Mild dysphagia due to esophageal cancer. 10.Hypoosmolar/hyponatremia. 11.Normocytic anemia likely due to underlying malignancy. 12.Hypoalbuminemia from mild protein-calorie malnutrition. 13.Gallstones, asymptomatic. PLAN: Discussed with Alee Jimenez from Oncology and we will go ahead and consult Edson Valenzuela from Radiation Oncology. Care was discussed in detail with the son and the patient at the bedside. Questions were answered. Total time spent today was about 35- 40 minutes with over 20 minutes of discussion. MMODL / IJN: [id number] /
[2017-07-16] MEDS: TAMSULOSIN 0.4 MG CAP.ER.24H PO SCH (09:30)
[2017-07-16] MEDS: ASPIRIN 81 MG PO SCH (09:30)
[2017-07-16] MEDS: DEXAMETHASONE 4 MG TAB PO SCH ×3 (09:31→21:40)
[2017-07-16] MEDS: GABAPENTIN 300 MG CAP PO SCH ×3 (09:31→21:40)
[2017-07-16] MEDS: B COMPLEX-VIT C-VIT E-ZINC 1 EACH TAB PO SCH (09:31)
[2017-07-16] MEDS: CLOTRIMAZOLE TROCHE 10 MG TROCHE MUCOUS MEM SCH ×4 (09:32→21:40)
[2017-07-16] MEDS: ATENOLOL 50 MG TAB PO SCH (09:32)
[2017-07-16] MEDS: MULTIVITAMINS, THERA 1 EACH TAB PO SCH (09:33)
[2017-07-16] MEDS: ENOXAPARIN 40 MG/0.4 ML SYRINGE SQ SCH (09:33)
[2017-07-16] MEDS: NAPROXEN 250 MG TAB PO SCH ×2 (09:34→17:01)
[2017-07-16] MEDS: oxyCODONE-APAP 10-325MG 1 EACH TAB PO PRN ×3 (09:55→21:40)
[2017-07-16] MEDS: BISACODYL 5 MG TABLET.DR PO SCH (09:55)
--- NOTE | 2017-07-16 16:56 | P.PN ---
Subjective Progress Note Date: 07/16/17 Principal diagnosis: abdominal pain, esophageal adenocarcinoma Patient seen today in follow-up, and sister are at bedside. Family states improved cognition/mental status, patient agrees, he feels less confused. Patient denies headache, dizziness or vision changes. No current nausea, shortness of breath, he is taking medication for constipation, he has been ambulating in the workman with a wheeled walker. His mid back pain is not controlled, constant, deep, aching, 7 out of 10, not much is giving him relief, worse when just laying around.. Objective - Vital Signs Vital signs: Vital Signs Temp 98.4 F 07/16/17 14:29 Pulse 72 07/16/17 14:29 Resp 18 07/16/17 16:00 BP 116/68 07/16/17 14:29 Pulse Ox 96 07/16/17 14:29 Intake & Output 07/15/17 07/16/17 07/16/17 18:59 06:59 18:59 Intake Total 480 Balance 480 Weight 88.451 kg 88.451 kg Intake: Oral 480 Other: Voiding Method Toilet Toilet Toilet # Voids 3 3 2 # Bowel Movements 0 1 - Constitutional General appearance: Present: average body habitus, cooperative, no acute distress - EENT Eyes: Present: anicteric sclerae - Respiratory Respiratory: bilateral: CTA - Cardiovascular Heart sounds: normal: S1, S2 - Gastrointestinal General gastrointestinal: Present: soft, tenderness - Integumentary Integumentary: Present: pale - Neurologic Neurologic Comment(s): no gross motor or neuro deficits - Musculoskeletal Musculoskeletal: Present: generalized weakness - Psychiatric Psychiatric: Present: A&O x's 3, appropriate affect - Labs CBC & Chem 7: 07/13/17 15:47 07/13/17 15:47 Labs: Microbiology - Last 24 Hours (Table) 07/10/17 10:00 Blood Culture - Final Blood No Growth after 144 hours - Imaging and Cardiology MRI - head: report reviewed Assessment and Plan (1) Brain metastases Narrative/Plan: Patient started on dexamethasone 4 mg every 6 hours. Patient will continue on this dose and taper once he has started radiation. Case was discussed with Radiation Oncologist, he is going to discuss options for treatment with the patient and family. His recommendation at this time, if pt and family want to pursure treatment, would be for whole brain radiation due to symptoms and the number lesions. On the imaging, suspect hemorrhagic lesions, NSAIDs and aspirin held for now, okay to continue DVT prophylaxis. Once patient has had some radiation treatments aspirin and NSAIDs can be resumed. I will discussed case with the patient's primary Oncologist Dr. Gurrola, treatment recommendations will be discussed with patient and family in the AM. Current Visit: Yes Status: Acute Priority: High Code(s): C79.31 - SECONDARY MALIGNANT NEOPLASM OF BRAIN SNOMED Code(s): 20702869 (2) Esophageal cancer Narrative/Plan: Pt has progressed through several lines of therapy, will discuss with Dr. Gurrola , further recommendations to follow Current Visit: Yes Status: Acute Priority: High Code(s): C15.9 - MALIGNANT NEOPLASM OF ESOPHAGUS, UNSPECIFIED SNOMED Code(s): 918956948 (3) Intractable pain Narrative/Plan: Patient does not tolerate morphine per family, increased percocet frequency ordered, see how patient does, may have to consider a low dose fentanyl with slow titration. Current Visit: Yes Status: Acute Priority: High Code(s): R52 - PAIN, UNSPECIFIED SNOMED Code(s): 30461320
[2017-07-16] MEDS: ATORVASTATIN 10 MG TAB PO SCH (21:40)
--- NOTE | 2017-07-16 22:57 | PN ---
PROGRESS NOTE DATE OF SERVICE: 07/15/2017 PRESENTING COMPLAINT: Tired. INTERVAL HISTORY: This patient has metastatic esophageal cancer presented with acute low back pain, felt to be musculoskeletal. MRI did confirm metastatic brain disease for which patient is on steroids. Pain is better controlled. He is tolerating some diet, although feels tired. is present. REVIEW OF SYSTEMS: Done for constitutional, cardiovascular, GI, pulmonary; relevant findings as above. CURRENT MEDICATIONS: Reviewed and include steroids. PHYSICAL EXAMINATION: Temperature 98.4, pulse 72, respiratory 18, blood pressure 116/68, pulse ox 96% on room air. GENERAL: Sitting up, tired appearing but awake. EYES: Pupils equal. Conjunctivae normal. HEENT: External appearance of nose and ears normal. Oral cavity normal. NECK: JVD not raised. Mass not palpable. Respiratory effort normal. LUNGS: Clear. CARDIOVASCULAR: First and second sounds, no edema. ABDOMEN: Soft, nontender. Liver and spleen not palpable. PSYCHIATRY: Awake, answering questions, although tired-appearing. INVESTIGATIONS: No blood work from today. ASSESSMENT: 1. Acute metabolic encephalopathy from metastatic brain disease. 2. Rnzth-mg-ssfjlnp osteoarthritis flare of L5-S1 with possible radiculopathy, improved. 3. Esophageal cancer with metastasis. 4. Essential hypertension. 5. Hyperlipidemia. 6. Peripheral neuropathy due to chemotherapy. 7. Benign prostatic hypertrophy. 8. Chronic tinnitus. 9. Mild dysphagia due to esophageal cancer. 10.Hypo-osmolar hyponatremia. 11.Normocytic anemia likely due to malignancy. 12.Hypoalbuminemia from mild protein-calorie malnutrition. 13.Gallstones, asymptomatic. PLAN: Earlier discussed with the patient and the and did say that we will discuss further with Oncology and Radiation Oncology. Later on discussed with Dr. Javy Valenzuela and he was planning to do first radiation trial tomorrow morning. I did ask him to talk to Dr. Gurrola about the same. Late in the evening I did communicate with Margie Jimenez who had spoken to Dr. Gurrola and did communicate that he has recommended hospice. We will discuss the same with the patient and his tomorrow. Total time spent today was about 40 minutes with over 25 minutes of discussion. MMODL / IJN: [id number] /
[2017-07-16 23:14] VITALS: RESP 16
[2017-07-17] MEDS: ATENOLOL 50 MG TAB PO SCH (08:26)
[2017-07-17] MEDS: CLOTRIMAZOLE TROCHE 10 MG TROCHE MUCOUS MEM SCH ×2 (08:26→13:29)
[2017-07-17] MEDS: GABAPENTIN 300 MG CAP PO SCH ×2 (08:26→16:14)
[2017-07-17] MEDS: ENOXAPARIN 40 MG/0.4 ML SYRINGE SQ SCH (08:26)
[2017-07-17] MEDS: B COMPLEX-VIT C-VIT E-ZINC 1 EACH TAB PO SCH (08:26)
[2017-07-17] MEDS: DEXAMETHASONE 4 MG TAB PO SCH ×2 (08:26→16:14)
[2017-07-17] MEDS: oxyCODONE-APAP 10-325MG 1 EACH TAB PO PRN ×3 (08:30→16:13)
[2017-07-17] MEDS: BISACODYL 5 MG TABLET.DR PO SCH (08:30)
[2017-07-17] MEDS: MULTIVITAMINS, THERA 1 EACH TAB PO SCH (09:09)
[2017-07-17] MEDS: TAMSULOSIN 0.4 MG CAP.ER.24H PO SCH (09:10)
[2017-07-17 14:38] VITALS: BP 136/77; PULSE 62; TEMP 98.2
--- NOTE | 2017-07-17 15:53 | P.CONS ---
History of Present Illness - Reason for Consult Consult date: 07/16/17 brain metastases Requesting physician: Koby Coronado - Chief Complaint I'm having low back pain - History of Present Illness Patient is a 71-year-old male with a history of metastatic adenocarcinoma of the esophagus. He has previously undergone 3 different chemotherapy regimens, and unfortunately presents with disease progression. The patient was admitted to the ER on July 10 secondary to back pain as well as nausea. His last treatment of chemotherapy have been approximately [address] scan of the abdomen and pelvis revealed significant disease progression with numerous pulmonary nodules, increased size of retroperitoneal adenopathy and liver metastases. The patient was found to have a couple episodes of confusion during his hospitalization. MRI the brain was performed on July 14 revealing 14-15 total brain metastasis, with a particularly large lesion in the right temporal lobe measuring 6.5 cm. The patient has a significant history of hand tremors, but is noted that he has been more tremulous in the past week. He has had mild headaches, with some associated nausea. According to his , he has had a couple episodes of confusion since his hospital stay. He was driving and walking on his own without difficulty just 1 week prior. Regarding his back pain; he notes this is in the middle of the lower back. The pain tends to radiate to both sides. The pain has not significantly improved during his hospital stay, and typically gets better when he gets up and walks around. He has been ambulatory in the hallways with a walker. Review of Systems Constitutional: Denies chills, Denies fever Eyes: bilateral blurred vision Ears, nose, mouth and throat: Denies headache Cardiovascular: Denies chest pain Respiratory: Denies cough Gastrointestinal: Denies BRBPR, Denies change in bowel habits Musculoskeletal: Reports low back pain Neurological: Reports confusion, Reports tremors, Reports weakness (Left sided) , Denies headaches, Denies numbness Past Medical History Past Medical History: Cancer, Hyperlipidemia, Hypertension, Renal Disease Additional Past Medical History / Comment(s): 2017 diagnosed with esophageal cancer tx with chemo (3 rounds) and last chemo about 2 weeks ago, neuropathy bilateral hands and feet, some difficulty swallowing, kidney stones, tinnitis bilaterally, BPH. History of Any Multi-Drug Resistant Organisms: None Reported Past Surgical History: Tonsillectomy Additional Past Surgical History / Comment(s): 04/18/16 R sided port a cath, COLONOSCOPY, lithotripsy, Past Anesthesia/Blood Transfusion Reactions: No Reported Reaction Past Psychological History: No Psychological Hx Reported Additional Psychological History / Comment(s): Pt resides with his spouse. He is independent. Smoking Status: Never smoker Past Alcohol Use History: Occasional Past Drug Use History: None Reported - Past Family History Mother Family Medical History: Cancer Additional Family Medical History / Comment(s): breast cancer Father Family Medical History: CVA/TIA Additional Family Medical History / Comment(s): Father had a CVA. He at the age of 96yrs. Medications and Allergies Home Medications Medication Instructions Recorded Confirmed Type Atenolol [Tenormin] 50 mg PO DAILY 03/19/14 07/10/17 History Gabapentin [Neurontin] 300 mg PO TID 01/06/17 07/10/17 History Tamsulosin [Flomax] 0.4 mg PO DAILY #7 cap 02/02/17 07/10/17 Rx traMADol HCL [Ultram] 50 mg PO Q8H PRN 02/02/17 07/10/17 History Bisacodyl [Dulcolax] 5 mg PO DAILY 07/10/17 07/10/17 History Clotrimazole [place] [Mycelex 10 mg MUCOUS MEM QID 07/10/17 07/10/17 History Maribell] Dexamethasone 4 mg PO QID #100 tablet 07/17/17 Rx Pantoprazole [Protonix] 40 mg PO DAILY #90 tablet. 07/17/17 Rx oxyCODONE-APAP 10-325MG [Percocet 1 tab PO Q4H PRN #1 tab 07/17/17 Rx 10-325 mg] Allergies Allergy/AdvReac Type Severity Reaction Status Date / Time No Known Allergies Allergy Verified 07/10/17 09:46 Physical Exam Vitals: Vital Signs Temp Pulse Resp BP Pulse Ox 07/17/17 14:37 98.2 F 62 16 136/77 95 07/17/17 05:15 98.0 F 79 16 148/50 94 L 07/16/17 22:25 98.6 F 62 16 115/61 94 L 07/16/17 16:00 18 Intake and Output 07/17/17 07/17/17 07/17/17 06:59 14:59 22:59 Other: # Voids 2 2 - Constitutional General appearance: average body habitus, no mild distress - EENT Eyes: EOMI, PERRLA ENT: hearing grossly normal - Neck Neck: no lymphadenopathy - Respiratory Respiratory: bilateral: CTA - Cardiovascular Rhythm: regular - Gastrointestinal General gastrointestinal: no distended, no tenderness - Neurologic Neurologic: CNII-XII intact, focal deficits (LLE weakness 4/5 strength) - Musculoskeletal Musculoskeletal: left sided weakness - Psychiatric Psychiatric: A&O x's 3, appropriate affect Results CBC & Chem 7: 07/13/17 15:47 07/13/17 15:47 Labs: Microbiology - Last 24 Hours (Table) 07/10/17 10:00 Blood Culture - Final Blood No Growth after [address] scan - abdomen: report reviewed, image reviewed CT scan - pelvis: report reviewed, image reviewed MRI - head: report reviewed, image reviewed Assessment and Plan Plan: 1. Brain metastases: Patient has newly diagnosed brain metastasis. The one lesion in the right temporal lobe has a large hemorrhagic component. This likely explains the left-sided hemiparesis, as well as the patient's occasional confusional episodes. The patient has subsequently been started on Decadron. I have also advised that the patient hold all aspirin and NSAIDs. I explained to the patient that based on his numerous lesions, I would recommend a course of whole brain radiotherapy. I discussed that this radiotherapy is associated with fatigue, reversible hair loss, scalp irritation, otitis and delayed neurocognitive difficulties. I explained that I did not feel with his numerous lesions that radiosurgery would be appropriate. 2. Lumbar pain: Based on my review of the patient's CT imaging, he has no clear bony metastasis causing this pain. It is possible that the patient's increasing retroperitoneal adenopathy is contributing to this pain. At this juncture, I would recommend the patient's pain control be optimized prior to discharge. 3. Metastatic esophageal cancer: The patient's disease appears to be progressing on third line chemotherapy. I discussed with the patient that initiating a hospice referral may be appropriate this time. The patient will discuss this matter further with medical oncology. In the meantime, we will initiate his whole brain radiotherapy for symptom palliation. Time with Patient: Greater than 30
--- NOTE | 2017-07-18 06:46 | DS ---
DISCHARGE SUMMARY DATE OF ADMISSION: 07/10/2017. DATE OF DISCHARGE: July 17, 2017. FINAL DIAGNOSES: 1. Acute metabolic encephalopathy from metastatic brain disease. 2. Acute on chronic osteoarthritis flare up of L5-S1 with possible radiculopathy. 3. Esophageal cancer with metastasis. 4. Essential hypertension. 5. Hyperlipidemia. 6. Peripheral neuropathy due to chemotherapy. 7. Benign prostatic hypertrophy. 8. Chronic tinnitus. 9. Mild dysphagia due to esophageal cancer. 10.Hypoosmolar hyponatremia. 11.Normocytic anemia likely due to malignancy. 12.Hypoalbuminemia from mild protein-calorie malnutrition. 13.Gallstones, asymptomatic. HOSPITAL COURSE: This patient has been treated for metastatic esophageal cancer presented with increasing low back pain. Imaging was done that confirmed osteoarthritis. The patient responding well to medications. Because of his drowsiness, MRI of the brain was done that confirmed metastatic disease. Dr. Edson Valenzuela saw the patient from Radiation Oncology for palliative radiation oncology. Saw the patient and patient will be made hospice down the road. Currently patient is recommended to receive palliative care with the radiation. Did discuss the care with the . Also with Aurelia Hutchins DRIVER LICENSE AGENT from Oncology. DISCHARGE MEDICATIONS: 1. Tenormin 50 mg daily. 2. Neurontin 300 mg p.o. t.i.d. 3. Flomax 0.4 mg a day. 4. Ultram 50 mg q.8h p.r.n. 5. Dulcolax 5 mg daily. 6. Mycelex [place] 10 mg q.i.d. 7. Dexamethasone 4 mg p.o. q.i.d. 8. Protonix 40 mg p.o. daily. 9. Percocet 10 1 tab q.4h p.r.n. FOLLOWUP: Follow up with Dr. Coronado in [address] Nuñez p.r.n. TY has been involved. Brain radiation with palliative care as per Dr. Javy Valenzuela. Discussion and discharge planning more than 35 minutes. MMODL / IJN: [id number] /
== END 2017-07-17 16:52 | disposition home health service (06) | DRG 551 ==
LOC: EC 08:59 → 4MS4W 13:00
PROVIDERS: ADMIT Hospitalist; ATTEND Hospitalist
DX: M47.27 Other spondylosis with radiculopathy, lumbosacral region (principal); G93.41 Metabolic encephalopathy; N12 Tubulo-interstitial nephritis, not specified as acute or chronic; E44.1 Mild protein-calorie malnutrition; E87.1 Hypo-osmolality and hyponatremia; C15.5 Malignant neoplasm of lower third of esophagus; C78.7 Secondary malignant neoplasm of liver and intrahepatic bile duct; C78.00 Secondary malignant neoplasm of unspecified lung; C79.31 Secondary malignant neoplasm of brain; I10 Essential (primary) hypertension; E78.5 Hyperlipidemia, unspecified; H93.19 Tinnitus, unspecified ear; D63.0 Anemia in neoplastic disease; G62.0 Drug-induced polyneuropathy; T45.1X5A Adverse effect of antineoplastic and immunosuppressive drugs, initial encounter; G89.29 Other chronic pain; K80.20 Calculus of gallbladder without cholecystitis without obstruction; N40.0 Benign prostatic hyperplasia without lower urinary tract symptoms; R13.10 Dysphagia, unspecified; K59.00 Constipation, unspecified; Z80.3 Family history of malignant neoplasm of breast; Z79.82 Long term (current) use of aspirin; Z79.899 Other long term (current) drug therapy; Z82.3 Family history of stroke; Z87.442 Personal history of urinary calculi
CPT/HCPCS: 36415; 70553; 72110; 74177; 80053; 81001; 82150; 83605; 83690; 83930; 83935; 85025; 87040; 87086; 96361; 96374; 96375; 96376; 99285